=== PATIENT | female | born 1930 | race Caucasian/White ===

== ENCOUNTER 2019-06-16 08:51 | Inpatient (IN) ==
[2019-06-16 09:38] LABS: Basophils # (auto) 0.01 K/uL (0-0.2); Basophils % (auto) 0.2 %; Eosinophils # (auto) 0.18 K/uL (0-0.5); Eosinophils % (auto) 2.8 %; Hematocrit (blood only) 39.8 % (37-47); Hemoglobin 13.1 g/dL (12.0-16.0); Immature Granulocytes # (auto) 0.01 K/uL (0.00-0.02); Immature Granulocytes % (auto) 0.2 %; Lymphocytes # (auto) 2.15 K/uL (1.2-3.4); Lymphocytes % (auto) 33.1 %; Mean Corpuscular Hgb Conc 32.9 g/dL (32-36); Mean Corpuscular Volume 94.3 fL (80-100); Mean Platelet Volume 10.2 fL (7.4-10.4); Monocytes # (auto) 0.69 K/uL (0.11-0.59); Monocytes % (auto) 10.6 %; Neutrophils # (auto) 3.45 K/uL (1.4-6.5); Neutrophils % (auto) 53.1 %; Platelet Count 222 K/uL (130-400); RDW Coefficient of Variation 12.7 % (11.5-14.5); RDW Standard Deviation 43.1 fL (36.4-46.3); Red Blood Count 4.22 M/uL (4.2-5.4); White Blood Count 6.49 K/uL (4.8-10.8)
[2019-06-16 09:46] LABS: Prothrombin Time 10.7 Seconds (9.0-12.0)
--- NOTE | 2019-06-16 09:50 | XRay Report ---
XR pelvis 1-2V routine CLINICAL HISTORY: 88 years-old Female presenting with trauma. TECHNIQUE: Single frontal view of the pelvis was obtained. COMPARISON: None. FINDINGS: Osteopenia. This limits evaluation for nondisplaced fracture. Degenerative changes of the lower lumba r spine. Sacroiliac joints grossly congruent though poorly evaluated secondary to bowel gas. The sacr um is also partially obscured. Pubic symphysis and hip joints congruent. Severe degenerative changes of the left hip with joint space loss superiorly, subchondral sclerosis in both the femoral head and acetabulum as well as cortical surface depression and irregularity. No significant degenerative siegel es evident in the right hip. Femoral necks intact. Bony pelvis grossly intact. IMPRESSION: 1. Allowing for osteopenia and bowel gas, no gross evidence of acute osseous injury of the pelvis. 2. Severe deforming degenerative change of the left hip. ACT 112: Negative or not required by law. Electronically signed by: Turner Govea M.D. 06/16/2019 9:48 AM
--- NOTE | 2019-06-16 09:52 | XRay Report ---
XR chest 1V portable CLINICAL HISTORY: dizziness COMPARISON STUDY: Chest radiograph November 04, 2018. FINDINGS: Note is made of scoliosis of the thoracolumbar spine. Suspected left pleural calcified plaq ue is noted. There are old right rib fractures. Mild cardiomegaly is noted without evidence for pulmo nary edema. There is no consolidation to suggest pneumonia. Old right clavicular fracture is noted. IMPRESSION: No acute cardiopulmonary findings. ACT 112: Negative or not required by law. Electronically signed by: Jem Choudhury M.D. 06/16/2019 9:50 AM
[2019-06-16 09:54] LABS: Alanine Aminotransferase 22 U/L (12-78); Albumin Level 3.5 gm/dl (3.4-5.0); Aspartate Aminotransferase 21 U/L (15-37); BUN Creatinine Ratio 17.8 (10-20); Blood Urea Nitrogen 13 mg/dl (7-18); Calcium 9.8 mg/dl (8.5-10.1); Carbon Dioxide 28 mmol/L (21-32); Chloride 108 mmol/L (98-107); Creatinine Clr Calc Pharmacy 39.3 ml/min; Est GFR (African American) 88.1; Glucose 96 mg/dl (70-99); Lipase 68 U/L (73-393); Magnesium 1.8 mg/dl (1.8-2.4); Potassium 3.9 mmol/L (3.5-5.1); Sodium 141 mmol/L (136-145)
[2019-06-16 09:56] LABS: Appearance Urine Cloudy (Clear); Bacteria Urine Automated 1+ (Negative); Bilirubin Urine Negative (Negative); Blood Urine 2+ (Negative); Color Urine Yellow; Epithelial Cell Urine Auto 0-5 /lpf (0-5); Glucose Urine UA Negative (Negative); Ketones Urine Negative (Negative); Leukocyte Esterase Urine 2+ (Negative); Nitrite Urine Negative (Negative); Protein Urine 2+ (Negative); Specific Gravity Urine 1.018 (1.000-1.030); Urobilinogen Urine Negative (Negative); WBC Urine Automated >30 /hpf (0-5); pH Urine 5.5 (4.5-7.5)
--- NOTE | 2019-06-16 10:02 | CT Scan Report ---
CT OF THE HEAD WITHOUT CONTRAST CLINICAL HISTORY: trauma, dizziness COMPARISON STUDY: No previous studies for comparison. TECHNIQUE: Helical axial images of the head were obtained without IV contrast. Automated exposure con trol was utilized for the study. A dose lowering technique was utilized adhering to the principles o f ALARA. FINDINGS: Acute intracranial hemorrhage, midline shift or mass effect is present. Right frontal lobe encephalomalacia is noted. White matter hypodensity suggests small vessel disease. Mild ventricular d ilatation is likely due to central atrophy. Basilar cisterns are patent. There are no extra axial col lections. There is no calvarial fracture. IMPRESSION: 1. No acute intracranial findings. 2. No calvarial fracture. 3. Right frontal lobe encephalomalacia. ACT 112: Negative or not required by law. Electronically signed by: Jem Choudhury M.D. 06/16/2019 10:01 AM
[2019-06-16] MEDS: SODIUM CHLORIDE 0.9% 1000ML 1,000 ML IV SCH ×2 (10:04→16:33)
[2019-06-16 10:05] LABS: Albumin Globulin Ratio 1.1 (0.9-2); Alkaline Phosphatase 93 U/L (45-117); Bilirubin,Total 0.9 mg/dl (0.2-1); Globulin 3.3 gm/dl (2.5-4.0); Thyroid Stimulating Hormone 0.243 uIu/ml (0.300-4.500); Total Protein 6.8 gm/dl (6.4-8.2); Troponin I < 0.015 ng/ml (0-0.045)
--- NOTE | 2019-06-16 10:05 | CT Scan Report ---
CT cervical spine wo con CLINICAL HISTORY: 88 years-old Female presenting with trauma, dizziness. TECHNIQUE: Multidetector CT of the cervical spine was performed without the use of intravenous contra st. IV contrast: None. One or more dose lowering techniques were used consistent with the principles of ALARA (as low as reasonably achievable), including automatic exposure control, mA or kV adjustment to individual patient size, and/or use of iterative reconstruction. COMPARISON: None. CT DOSE (mGy.cm): The estimated cumulative dose is 925.33 mGy.cm. 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 Mild exaggerated cervical lordosis. Vertebral bodies maintain normal height and alignment. Moderate i ntervertebral disc height loss at C5-6 and to a lesser extent at C4-5. Disc osteophyte complexes at t hese levels with mild posterior spondylitic spurring. Evaluation of the soft tissues of the spinal ca nal do not demonstrate further effacement of the thecal sac. No significant facet arthropathy. Mild u ncovertebral hypertrophy at C4-5 and C5-6 results in osseous neural foraminal narrowing. Incidental n ote made of bilateral ponticulus posticus. Mild degenerative changes of the atlantodental articulatio n with loss of height of the basion height and dental interval. This is likely on a degenerative basi s. No acute fracture or subluxation. Visualized portion of the skull base intact. Paraspinal musculature normal. 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 Diminutive left thyr oid lobe. Atherosclerosis.. Lung apices clear. IMPRESSION: 1. No acute osseous injury of the cervical spine. 2. Focal degenerative change at C4-5 and C5-6. 3. Multinodular goiter. ACT 112: Negative or not required by law. Electronically signed by: Turner Govea M.D. 06/16/2019 10:04 AM
[2019-06-16 10:41] LABS: T4 Free Thyroxine 1.31 ng/dl (0.8-1.6)
[2019-06-16] MEDS ORDERED: cefTRIAXone SODIUM 1,000 MG/50 ML BAG IV STA (11:15)
--- NOTE | 2019-06-16 13:39 | Emergency Department Note ---
Entered by Leslie Regalado acting as a scribe for History of Present Illness General Chief complaint: Dizziness Time Seen by Provider: 06/16/19 08:57 Source: patient and family History of Present Illness Onset (ago): day(s) 2 Location: head (dizziness) Severity: similar to prior episodes Pain Consistency: + other (persistent) Quality: + other (dizziness, room spinning) Relieved By: + rest; not by medication (Tylenol) Exacerbated By: + movement (sitting up) Associated symptoms: + headaches and + other (Positive dizziness, room spinning, warm, anxious, UTI symptoms, fall. Negative abdominal pain.); no nausea/vomiting The patient is an 88 year old female presenting to the Emergency Department complaining of persistent dizziness starting 2 days ago. The patients family reports that the patient has been dizzy and has been trouble getting out of bed because of this dizziness. They describe this dizziness as a spinning sensation. They state that the patients dizziness has improved but that she still currently is experiencing it. They note that lying down and resting improve the patients dizziness. They add that the patient was warm yesterday but that her temperature was never taken and that her blood pressure yesterday was 168/90s. The patients family reports that the patient fell 3 days ago. They state that the patient hit her head off of a skin and scraped her extremities. They explain that the patient was complaining of a headache 1 day ago but that her headache h as resolved since. They note that the patient has been taking Tylenol that hasnt improved her symptoms. They add that the patient is anxious. The patients family reports that the patient is supposed to have a hip replacement this week. She states that she hasnt contacted the patients orthopedic surgeon about her recent fall. They note that the patient has UTI symptoms. They add that the patient has fallen before. The patient denies nausea, vomiting, abdominal pain and use of blood thinners. Home Medications Home Medications Medication Instructions Recorded Confirmed Type meloxicam 7.5 mg PO DAILY 11/04/18 06/16/19 History turmeric 400 mg PO DAILY 11/04/18 06/16/19 History atenolol 50 mg PO HS 05/09/19 06/16/19 History hydrocodone 5 mg-acetaminophen 325 1 tab PO Q8H PRN #30 tab 02/03/20 03/05/20 Rx mg tablet meclizine 25 mg tablet 25 mg PO DAILY PRN 05/16/19 06/16/19 History tramadol 50 mg tablet 50 mg PO BID PRN 06/06/19 06/16/19 History mirtazapine 15 mg tablet 15 mg PO DAILY #30 tab 06/07/19 06/16/19 Rx lorazepam 0.5 mg tablet 0.5 mg PO BID PRN #30 tab 06/13/19 06/16/19 Rx Allergies Allergy/AdvReac Type Severity Reaction Status Date / Time No Known Allergies Allergy Unverified 06/16/19 09:41 Past Med/Surg History Medical History 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 Degenerative disc disease Depression situational ( 06/2018) Dizziness + hx vertigo/dizziness- PCP monitoring History of high blood pressure History of vertigo Nausea Scoliosis deformity of spine Surgical History History of bilateral cataract extraction History of hysterectomy Family History Mother Family history of stroke Father Family history of stroke Other Family history of prostate cancer in father Denies family history of Ovarian cancer Prostate cancer Myocardial infarction Breast cancer Colorectal cancer Social History Preferred Language: Cymro Communication Ability: Effective Visual Impairment: No Limitations Hearing Ability: Normal 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 and A total of 10 systems reviewed and were otherwise negative Physical Exam Vital Signs Vital Signs - 24 hr 06/16/19 09:06 06/16/19 09:14 06/16/19 10:03 Temperature 37.5 C Temperature Source Oral Pulse Rate - Lying 65 Pulse Rate - Sitting 68 Pulse Rate - Standing 74 Pulse Rate 65 Pulse Rate [Left Finger] 64 Respiratory Rate 16 22 Blood Pressure - Lying 169/80 H Blood Pressure - Sitting 190/111 H Blood Pressure- Standing 173/94 H Blood Pressure 183/82 H Blood Pressure [Right Arm] 163/73 H Blood Pressure Mean 115 Blood Pressure Mean [Right Arm] 103 Pulse Oximetry 96 97 Oxygen Delivery Method Room Air Room Air Sepsis Recent Fever Within 48 Hours No Sepsis New/Unexplained Change in Mental Status No Sepsis Action Taken by Nursing No Action Required 06/16/19 11:00 06/16/19 12:00 06/16/19 13:03 Temperature Temperature Source Pulse Rate - Lying Pulse Rate - Sitting Pulse Rate - Standing Pulse Rate Pulse Rate [Left Finger] 61 64 69 Respiratory Rate 18 18 20 Blood Pressure - Lying Blood Pressure - Sitting Blood Pressure- Standing Blood Pressure Blood Pressure [Right Arm] 161/88 H 166/86 H 156/72 H Blood Pressure Mean Blood Pressure Mean [Right Arm] 112 112 100 Pulse Oximetry 97 97 97 Oxygen Delivery Method Room Air Room Air Room Air Sepsis Recent Fever Within 48 Hours Sepsis New/Unexplained Change in Mental Status Sepsis Action Taken by Nursing GENERAL: alert, well appearing, well nourished, no distress, non-toxic HEAD: normal cephalic, atraumatic, no schultz sign, no raccoon eyes EYE EXAM: normal conjunctiva, PERRL and EOM's grossly intact OROPHARYNX: no exudate, no erythema, lips, buccal mucosa, and tongue normal and mucous membranes are moist EARS: TMs clear b/l without hemotympanum, no edema along the canals NECK: supple, no nuchal rigidity, no adenopathy, non-tender CHEST: stable to compression anteriorly and posteriorly LUNGS: clear to auscultation. Normal chest wall mechanics, no w/r/r HEART: no murmurs, S1 normal and S2 normal ABDOMEN: abdomen soft, non-tender, normo-active bowel sounds, no masses, no rebound or guarding. PELVIS: stable to compression anteriorly and posteriorly BACK: Back is symmetrical on inspection and there is no deformity, no midline tenderness, no CVA tenderness. UPPER EXTREMITIES: Superficial abrasion/skin tear to the right forearm. Full active and passive range of motion of all joints without tenderness to palpation LOWER EXTREMITIES: Superficial abrasion/skin tear to distal LLE. Full active and passive range of motion of all joints without tenderness to palpation NEURO EXAM: Normal sensorium, cranial nerves II-XII grossly intact, normal speech, no gross weakness of arms, no gross weakness of legs. GCS: 15. Course Course 09: The patient was evaluated in room B12B, and a complete history and physical examination were performed. 1050: I reevaluated the patient at this time. 1058: I spoke to Dr. Hubbard orthoptists OR nurse. She recommended to try and call Dr. Horn orthopedists office. 1114: I discussed the patients case with Dr. Shepherd nurse Tammie. She will discuss the patients with him to determine the patients operative procedure which is scheduled for tomorrow. 1236: I discussed the patients case with Dr. Horn orthopedist. He is at the patients bedside and will evaluate her at this time. 1246: I spoke with Dr. Horn at this time. He recommends to have the patient medically admitted. 1335: I discussed the patient's case with Dr. Beard [facility] hospitalist. She will evaluate the patient for further management. Administered Medications Atenolol (Tenormin) 50 mg PO HS JACK Stop: 07/16/19 20:59 Last Admin: 06/16/19 20:19 Dose: 50 mg Documented by: [id number] Heparin Sodium (Porcine) (Heparin Sodium (Porcine)) 5,000 units SQ Q12 JACK Stop: 07/16/19 20:59 Last Admin: 06/17/19 08:08 Dose: Not Given Documented by: [id number] Admin: 06/16/19 20:19 Dose: 5,000 units Documented by: [id number] Cosigned by: [id number] Ceftriaxone Sodium 2,000 mg/ (Dextrose) 70 mls @ 100 mls/hr IV Q24H JACK; Protocol Stop: 06/22/19 10:59 Last Infusion: 06/17/19 12:12 Dose: 0 mls/hr Documented by: [id number] Admin: 06/17/19 11:16 Dose: 100 mls/hr Documented by: [id number] Lorazepam (Ativan) 0.5 mg PO BID PRN PRN Reason: anxiety Stop: 07/16/19 16:29 Last Admin: 06/17/19 11:18 Dose: 0.5 mg Documented by: [id number] Meloxicam (Mobic) 7.5 mg PO DAILY [facility] Stop: 07/17/19 08:59 Last Admin: 06/17/19 08:08 Dose: Not Given Documented by: [id number] Mirtazapine (Remeron) 15 mg PO DAILY [facility] Stop: 07/17/19 08:59 Last Admin: 06/17/19 08:08 Dose: Not Given Documented by: [id number] Discontinued Medications Sodium Chloride (Nss 1000ml) 1,000 mls @ 250 mls/hr IV .Q4H JACK Stop: 07/16/19 09:29 Last Admin: 06/16/19 16:33 Dose: Not Given Documented by: [id number] Infusion: 06/16/19 15:08 Dose: 0 mls/hr Documented by: [id number] Admin: 06/16/19 10:04 Dose: 250 mls/hr Documented by: [id number] Ceftriaxone Sodium (Rocephin) 1,000 mg in 50 mls @ 100 mls/hr IV NOW [facility] Stop: 06/16/19 11:44 Last Infusion: 06/16/19 11:55 Dose: 0 mls/hr Documented by: [id number] Admin: 06/16/19 11:24 Dose: 100 mls/hr Documented by: [id number] Medical Decision Making Differential Diagnosis Differential diagnosis includes etiologies such as benign positional vertigo, dehydration, hypovolemia, anemia, tumor, infection, hypoglycemia, electrolyte abnormalities, cardiac sources, intracerebral event, toxicologic, neurologic, as well as others were entertained. Medical Records Attestation: I reviewed the patient's medical records. Home Medications Current Medication List: was personally reviewed by me Laboratory Data Attestation: I reviewed the patient's lab results. Result diagrams: 06/17/19 06:17 06/17/19 06:17 Lab Results 06/16/19 06/16/19 06/16/19 Range/Units 09:25 09:28 09:28 WBC 6.49 (4.8-10.8) K/uL RBC 4.22 (4.2-5.4) M/uL Hgb 13.1 (12.0-16.0) g/dL Hct 39.8 (37-47) % MCV 94.3 (80-100) fL MCH 31.0 (25-34) pg MCHC 32.9 (32-36) g/dL RDW Std Deviation 43.1 (36.4-46.3) fL RDW Coeff of Amarjit 12.7 (11.5-14.5) % Plt Count 222 (130-400) K/uL MPV 10.2 (7.4-10.4) fL Immature Gran % (Auto) 0.2 % Neut % (Auto) 53.1 % Lymph % (Auto) 33.1 % [place] % (Auto) 10.6 % Eos % (Auto) 2.8 % Baso % (Auto) 0.2 % Immature Gran # (Auto) 0.01 (0.00-0.02) K/uL Neut # (Auto) 3.45 (1.4-6.5) K/uL Lymph # (Auto) 2.15 (1.2-3.4) K/uL [place] # (Auto) 0.69 H (0.11-0.59) K/uL Eos # (Auto) 0.18 (0-0.5) K/uL Baso # (Auto) 0.01 (0-0.2) K/uL PT 10.7 (9.0-12.0) Seconds INR 1.0 (0.9-1.1) Sodium (136-145) mmol/L Potassium (3.5-5.1) mmol/L Chloride (98-107) mmol/L Carbon Dioxide (21-32) mmol/L Anion Gap (3-11) BUN (7-18) mg/dl Creatinine (0.6-1.2) mg/dl Est Cr Clr Drug Dosing ml/min Est GFR ( Amer) Est GFR (Non-Af Amer) BUN/Creatinine Ratio (10-20) Glucose (70-99) mg/dl Calcium (8.5-10.1) mg/dl Magnesium (1.8-2.4) mg/dl Total Bilirubin (0.2-1) mg/dl AST (15-37) U/L ALT (12-78) U/L Alkaline Phosphatase (45-117) U/L Troponin I (0-0.045) ng/ml Total Protein (6.4-8.2) gm/dl Albumin (3.4-5.0) gm/dl Globulin (2.5-4.0) gm/dl Albumin/Globulin Ratio (0.9-2) Lipase (73-393) U/L TSH (0.300-4.500) uIu/ml Free T4 (0.8-1.6) ng/dl Urine Color Yellow Urine Appearance Cloudy A (Clear) Urine pH 5.5 (4.5-7.5) Ur Specific [place] 1.018 (1.000-1.030) Urine Protein 2+ H (Negative) Urine Glucose (UA) Negative (Negative) Urine Ketones Negative (Negative) Urine Blood 2+ H (Negative) Urine Nitrite Negative (Negative) Urine Bilirubin Negative (Negative) Urine Urobilinogen Negative (Negative) Ur Leukocyte Esterase 2+ H (Negative) Urine WBC (Auto) >30 H (0-5) /hpf Urine RBC (Auto) 10-30 H (0-4) /hpf U Hyaline Cast (Auto) 1-5 (0-5) /lpf U Epithel Cells (Auto) 0-5 (0-5) /lpf Urine Bacteria (Auto) 1+ H (Negative) 06/16/19 Range/Units 09:28 WBC (4.8-10.8) K/uL RBC (4.2-5.4) M/uL Hgb (12.0-16.0) g/dL Hct (37-47) % MCV (80-100) fL MCH (25-34) pg MCHC (32-36) g/dL RDW Std Deviation (36.4-46.3) fL RDW Coeff of Amarjit (11.5-14.5) % Plt Count (130-400) K/uL MPV (7.4-10.4) fL Immature Gran % (Auto) % Neut % (Auto) % Lymph % (Auto) % [place] % (Auto) % Eos % (Auto) % Baso % (Auto) % Immature Gran # (Auto) (0.00-0.02) K/uL Neut # (Auto) (1.4-6.5) K/uL Lymph # (Auto) (1.2-3.4) K/uL [place] # (Auto) (0.11-0.59) K/uL Eos # (Auto) (0-0.5) K/uL Baso # (Auto) (0-0.2) K/uL PT (9.0-12.0) Seconds INR (0.9-1.1) Sodium 141 (136-145) mmol/L Potassium 3.9 (3.5-5.1) mmol/L Chloride 108 H (98-107) mmol/L Carbon Dioxide 28 (21-32) mmol/L Anion Gap 5.0 (3-11) BUN 13 (7-18) mg/dl Creatinine 0.71 (0.6-1.2) mg/dl Est Cr Clr Drug Dosing 39.3 ml/min Est GFR ( Amer) 88.1 Est GFR (Non-Af Amer) 76.0 BUN/Creatinine Ratio 17.8 (10-20) Glucose 96 (70-99) mg/dl Calcium 9.8 (8.5-10.1) mg/dl Magnesium 1.8 (1.8-2.4) mg/dl Total Bilirubin 0.9 (0.2-1) mg/dl AST 21 (15-37) U/L ALT 22 (12-78) U/L Alkaline Phosphatase 93 (45-117) U/L Troponin I < 0.015 (0-0.045) ng/ml Total Protein 6.8 (6.4-8.2) gm/dl Albumin 3.5 (3.4-5.0) gm/dl Globulin 3.3 (2.5-4.0) gm/dl Albumin/Globulin Ratio 1.1 (0.9-2) Lipase 68 L (73-393) U/L TSH 0.243 L (0.300-4.500) uIu/ml Free T4 1.31 (0.8-1.6) ng/dl Urine Color Urine Appearance (Clear) Urine pH (4.5-7.5) Ur Specific [place] (1.000-1.030) Urine Protein (Negative) Urine Glucose (UA) (Negative) Urine Ketones (Negative) Urine Blood (Negative) Urine Nitrite (Negative) Urine Bilirubin (Negative) Urine Urobilinogen (Negative) Ur Leukocyte Esterase (Negative) Urine WBC (Auto) (0-5) /hpf Urine RBC (Auto) (0-4) /hpf U Hyaline Cast (Auto) (0-5) /lpf U Epithel Cells (Auto) (0-5) /lpf Urine Bacteria (Auto) (Negative) Imaging Data Radiologist's Impression: Radiology results as stated below per my review and the radiologist's interpretation: ADDENDUM Addendum: The first sentence of the findings section should read: No acute intracranial hemorrhage, midline shift or mass effect is present. Results electronically sent 06/16/2019 10:50 AM to: Fanta Howard DO Electronically signed by: Jem Choudhury M.D. 06/16/2019 10:[address] OF THE HEAD WITHOUT CONTRAST CLINICAL HISTORY: trauma, dizziness COMPARISON STUDY: No previous studies for comparison. TECHNIQUE: Helical axial images of the head were obtained without IV contrast. Automated exposure control was utilized for the study. A dose lowering technique was utilized adhering to the principles of ALARA. FINDINGS: Acute intracranial hemorrhage, midline shift or mass effect is present. Right frontal lobe encephalomalacia is noted. White matter hypodensity suggests small vessel disease. Mild ventricular dilatation is likely due to central atrophy. Basilar cisterns are patent. There are no extra axial collections. There is no calvarial fracture. IMPRESSION: 1. No acute intracranial findings. 2. No calvarial fracture. 3. Right frontal lobe encephalomalacia. ACT 112: Negative or not required by law. Electronically signed by: Jem Choudhury M.D. 06/16/2019 10:[address] cervical spine wo con CLINICAL HISTORY: 88 years-old Female presenting with trauma, dizziness. TECHNIQUE: Multidetector CT of the cervical spine was performed without the use of intravenous contrast. IV contrast: None. One or more dose lowering techniques were used consistent with the principles of ALARA (as low as reasonably achievable), including automatic exposure control, mA or kV adjustment to individual patient size, and/or use of iterative reconstruction. COMPARISON: None. CT DOSE (mGy.cm): The estimated cumulative dose is 925.33 mGy.cm. FINDINGS: Kitchen Chef topogram: Unremarkable. Mild exaggerated cervical lordosis. Vertebral bodies maintain normal height and alignment. Moderate intervertebral disc height loss at C5-6 and to a lesser extent at C4-5. Disc osteophyte complexes at these levels with mild posterior spondylitic spurring. Evaluation of the soft tissues of the spinal canal do not demonstrate further effacement of the thecal sac. No significant facet arthropathy. Mild uncovertebral hypertrophy at C4-5 and C5-6 results in osseous neural foraminal narrowing. Incidental note made of bilateral ponticulus posticus. Mild degenerative changes of the atlantodental articulation with loss of height of the basion height and dental interval. This is likely on a degenerative basis. No acute fracture or subluxation. Visualized portion of the skull base intact. Paraspinal musculature normal. 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 Diminutive left thyroid lobe. Atherosclerosis.. Lung apices clear. IMPRESSION: 1. No acute osseous injury of the cervical spine. 2. Focal degenerative change at C4-5 and C5-6. 3. Multinodular goiter. ACT 112: Negative or not required by law. Electronically signed by: Turner Govea M.D. 06/16/2019 10:04 AM XR chest 1V portable CLINICAL HISTORY: dizziness COMPARISON STUDY: Chest radiograph November 04, 2018. FINDINGS: Note is made of scoliosis of the thoracolumbar spine. Suspected left pleural calcified plaque is noted. There are old right rib fractures. Mild cardiomegaly is noted without evidence for pulmonary edema. There is no consolidation to suggest pneumonia. Old right clavicular fracture is noted. IMPRESSION: No acute cardiopulmonary findings. ACT 112: Negative or not required by law. Electronically signed by: Jem Choudhury M.D. 06/16/2019 9:50 AM XR pelvis 1-2V routine CLINICAL HISTORY: 88 years-old Female presenting with trauma. TECHNIQUE: Single frontal view of the pelvis was obtained. COMPARISON: None. FINDINGS: Osteopenia. This limits evaluation for nondisplaced fracture. Degenerative changes of the lower lumbar spine. Sacroiliac joints grossly congruent though poorly evaluated secondary to bowel gas. The sacrum is also partially obscured. Pubic symphysis and hip joints congruent. Severe degenerative changes of the left hip with joint space loss superiorly, subchondral sclerosis in both the femoral head and acetabulum as well as cortical surface depression and irregularity. No significant degenerative changes evident in the right hip. Femoral necks intact. Bony pelvis grossly intact. IMPRESSION: 1. Allowing for osteopenia and bowel gas, no gross evidence of acute osseous injury of the pelvis. 2. Severe deforming degenerative change of the left hip. ACT 112: Negative or not required by law. Electronically signed by: Turner Govea M.D. 06/16/2019 9:48 AM ECG Data Attestation: I personally reviewed and interpreted this ECG as follows: Indication: + other (dizziness) Rate (beats per minute): 64 Rhythm: + sinus rhythm ECG Intervals/blocks: + Normal QRS, + Normal QT and + Normal QT-c ECG [place]: + Normal ECG Findings: + Other (No acute ischemia.); no PACs and no PVCs Blood Pressure Blood Pressure Findings: Elevated blood pressure Blood Pressure Disposition: further management by hospitalist MDM Narrative Cardiac Monitoring: An order was placed for continuous cardiac monitoring. The monitor shows a rate of 82 with normal sinus rhythm. Patient here due to weakness, dizziness, getting worse per the family report to up to care for her. Patient did have a recent fall and due to concern for dizziness, family thought perhaps patient could have occult injury versus a urinary tract infection which is also because the symptoms prior. Patient found to have a UTI and was started on antibiotics. Patient's other labs and imaging are reassuring. Patient was scheduled to have a hip replacement tomorrow by Dr. Horn. We attempted to contact initially orthopedics corrections cadet and then Dr. Horn directly to see if this was still possible. Upon additional discussion with the family I involved case management as they were uncomfortable sending the patient home we did not feel we had a safe discharge plan as patient cannot safely ambulate at this time even with an assistive device. After discussion with Dr. Horn who also came and evaluated the patient at bedside, decision made to keep the patient in hospital for antibiotics, IV hydration, and continued monitoring in the hopes that she would still be able to have her surgery performed as scheduled, if not Dr. Horn will reschedule the procedure. Patient and family aware of all results and were in agreement with plan. Impression & Plan Dizziness, Left hip pain, Acute UTI, Dehydration, Fall Discharge Plan Visit Data *Final* Discharge Date/Time: 06/16/19 15:48 Chief Complaint: Dizziness ED Provider: Fanta Howard Discharge Problem: Dizziness, Left hip pain, Acute UTI, Dehydration, Fall Patient Disposition: Admitted As Inpatient Condition: Good Discharge Instructions Interventions: ED Discharge Assessment Last Done: 06/16/19 15:48 Discharge Problem: Fall Qualifiers: Encounter type: initial encounter Qualified Code(s): W19.XXXA - Unspecified fall, initial encounter The scribe's documentation has been prepared under my direction and personally reviewed by me in its entirety. I confirm that the note above accurately reflects all work, treatment, procedures, and medical decision making performed by me.
--- NOTE | 2019-06-16 15:12 | History & Physical Report ---
Date of Service June 16, 2019 Assessment & Plan (1) Acute UTI: Admit to [facility] on telemetry, Vital signs every 4 hours, Continue monitoring CBC CMP and replenish electrolytes, Patient was started empirically on ceftriaxone for urinary tract infection, DVT prophylaxis Heparin 5000 subcu every 12 hours Full code Present on Admission?: Yes (2) Dehydration: Patient was resuscitated in the emergency room with IV fluid, Continue monitoring BUN. Present on Admission?: Yes (3) Dizziness: Most likely due to dehydration and urinary tract infection, Slowly improving Present on Admission?: Yes (4) Osteoarthritis of left hip: Dr. Horn is planning for patient to have surgery of left hip replacement on patient tomorrow at 1 PM if patient feels better. In case the surgery is going to be done we will continue on n.p.o. after midnight. Please inform Dr. Horn about patient status tomorrow and whether or not surgery should take place tomorrow or on Thursday. Continue pain management with hydrocodone/acetaminophen 5/325 milligrams every 8 hours as needed. Continue lorazepam 0.5 mg p.o. twice daily as needed. Continue meloxicam 7.5 mg p.o. daily, Continue tramadol 50 mg p.o. twice daily as needed. Present on Admission?: Yes (5) Fall: Hip surgery will definitely help patient to walk better and have better balance. Physical and Occupational Therapy should be planned after surgery. Present on Admission?: Yes (6) HTN (hypertension): An average is stable. Continue home medicine atenolol 50 mg p.o. nightly. Present on Admission?: Yes (7) Benign positional vertigo: Continue meclizine 25 mg p.o. daily as needed for vertigo Present on Admission?: Yes (8) Failure to thrive: Continue mirtazapine 15 mg p.o. daily. Present on Admission?: Yes History of Present Illness Chief Complaint: Primary Care Provider: Rashad Devries, The patient is an 88 years old female with past medical history of hy pertension, left hip pain, vertigo, who was brought by EMS complaining of persistent dizziness started 2 days ago. The patient family reports that patient has been dizzy and has trouble getting out of bed because of her dizziness. Patient is poor historian and family is mostly reviewing systems and giving history for her. Dizziness is described as a spinning sensation. Even though patient reports the dizziness is somewhat improved she still has it. Resting and lying down improves dizziness. The family reports that patient fell 3 days ago. She hit her head and scraped her extremities. Since that fall patient is complaining of a headache for 1 day but that headache resolved. Thing improves patient body pain, and her family said that occasionally she takes Tylenol. Patient also has issues with anxiety. Patient supposed to have left hip replacement tomorrow with Dr. Horn. Patient denies fever, chills, chest pain, shortness of breath, abdominal pain, frequency, urgency. Patient is not on blood thinning agents. Denies traveling recently abroad. Labs are reviewed: WBC 6.49, hemoglobin 13.1, hematocrit 39.8, platelets 222, PT 10.7, INR 1, sodium 141, potassium 3.9, chloride 108, carbon dioxide 28, anion gap 5, BUN 13, creatinine 0.0 71, GFR 76, BUN 17.8, glucose 96, calcium 9.8, magnesium 1.8, total bilirubin 0.9, AST 21, ALT 22, alkaline phosphatase 93, troponin 0.01 5, total protein 6.8, albumin 3.5, globulin 3.3, lipase 68, TSH 0.243 which is low but T4 is still normal 1.31. Urine is yellow, urine appearance cloudy, urine pH 5.5, urine specific gravity 1.018 urine protein 2+, urine blood 2+, urine nitrate negative, leukocyte esterase 2+, urine WBCs over 30, urine RBCs 10-30, urine bacteria 1+. X-rays of the cervical spine: No acute osseous injury of the cervical spine. Focal degenerative changes of C4-C5 and C5-C6. Multinodular gland goiter. Chest x-rays no acute cardiopulmonary finding. Mild cardiomegaly is noted without evidence of pulmonary edema. There is no consolidation of suggested pneumonia. Old right clavicular fracture is noted. CT scan of the head did not show acute intracranial findings. Patient set has mild ventricular dilatation likely due to central atrophy. Basilar cisterns are patent. Right frontal lobe encephalomalacia. X-rays of pelvis shows osteopenia and bowel gas no gross evidence of acute osseous injury of the pelvis. Severe deforming degenerative changes of the left hip. The decision was made to admit patient to MedSurg on telemetry for further evaluation and treatment of generalized weakness, dizziness and treatment of urinary tract infection. Allergies Allergy/AdvReac Type Severity Reaction Status Date / Time No Known Allergies Allergy Unverified 06/16/19 09:41 Home Medications Home Medications Medication Instructions Recorded Confirmed Type meloxicam 7.5 mg PO DAILY 11/04/18 06/16/19 History turmeric 400 mg PO DAILY 11/04/18 06/16/19 History atenolol 50 mg PO HS 05/09/19 06/16/19 History hydrocodone 5 mg-acetaminophen 325 1 tab PO Q8H PRN #30 tab 05/16/19 06/16/19 Rx mg tablet meclizine 25 mg tablet 25 mg PO DAILY PRN 05/16/19 06/16/19 History tramadol 50 mg tablet 50 mg PO BID PRN 06/06/19 06/16/19 History mirtazapine 15 mg tablet 15 mg PO DAILY #30 tab 06/07/19 06/16/19 Rx lorazepam 0.5 mg tablet 0.5 mg PO BID PRN #30 tab 06/13/19 06/16/19 Rx Past Med/Surg History Medical History 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 Degenerative disc disease Depression situational ( 06/2018) Dizziness + hx vertigo/dizziness- PCP monitoring History of high blood pressure History of vertigo Nausea Scoliosis deformity of spine Surgical History History of bilateral cataract extraction History of hysterectomy Family History Mother Family history of stroke Father Family history of stroke Other Family history of prostate cancer in father Denies family history of Ovarian cancer Prostate cancer Myocardial infarction Breast cancer Colorectal cancer Social History Preferred Language: Armenian Communication Ability: Impaired Visual Impairment: No Limitations Hearing Ability: Normal [place] Measurer Required: No Beliefs That Will Affect Care: None marital status: / Current Living Situation: Family Current Living Situation Comment: Lives with son and daughter in law current occupational status: retired Feels Safe at Home: Yes Safety Concerns: Feels Safe At This Time Smoking Status: Never smoker Hx Alcohol Use: No Hx Substance Use: No Childhood Exposure to Second-Hand Smoke: Yes Dental Care, Regularly: Yes Physical Activity Frequency: Does not Exercise Seatbelt Use: always Sunscreen Use: Yes Review of Systems Review of Systems: All systems reviewed & are unremarkable except as noted in HPI & below Physical Exam Constitutional: WD/WN, vitals as above well developed, + ill appearing and + thin Eyes: PERRL ENMT: external ear and nose normal, oropharynx normal Neck: trachea midline, no thyromegaly Respiratory: normal respiratory effort, lungs clear to auscultation Cardiovascular: RRR, no murmur, no edema Vessels: dorsalis pedis pulses present Gastrointestinal (Abdomen): normal bowel sounds, soft, nontender, no hepatosplenomegaly Musculoskeletal: Spine: + buttock tenderness Limited range of motion in the left hip due to severe osteoarthritis Skin: no rashes, warm and dry Neurologic: patellar DTR's 2+ bilat, sensation intact Psychiatric: Insight: + limited insight 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 Lymphatic: no cervical or axillary lymphadenopathy Results & Data Vital Signs (Past 12 Hours) Vital Signs Temp Pulse Pulse Resp BP BP Pulse Ox 06/16/19 14:00 66 20 138/79 96 06/16/19 13:03 69 20 156/72 H 97 06/16/19 12:00 64 18 166/86 H 97 06/16/19 11:00 61 18 161/88 H 97 06/16/19 10:03 64 22 163/73 H 97 06/16/19 09:06 37.5 C 65 16 183/82 H 96 Code Status & VTE Plan Code Status Full code VTE Prophylaxis Plan VTE Prophylaxis will be ordered: Yes PG Care Time/CCT Total # of Minutes Spent Total Time Spent with Patient: Total time spent is greater than 50% in coordination of care (as documented) at patient's floor/unit and/or counseling patient: Coding Level of Care Code 27070 Initial Inpt Care Lvl 3 Diagnoses Acute UTI N39.0 Dehydration E86.0 Dizziness R42 Osteoarthritis of left hip M16.12 Fall W19.XXXA Encounter type: initial encounter HTN (hypertension) I10 Benign positional vertigo H81.10 Failure to thrive (1) Fall Encounter type: initial encounter Qualified Code(s): W19.XXXA - Unspecified fall, initial encounter
[2019-06-16] MEDS ORDERED: MAGNESIUM HYDROXIDE SUSP 30 ML UDC PO PRN (16:30)
[2019-06-16] MEDS ORDERED: ALUMINUM/MAGNESIUM SUSP 30 ML UDC PO PRN (16:30)
[2019-06-16] MEDS ORDERED: ONDANSETRON INJ 2 MG/ML 2 ML VIAL IV PRN (16:30)
[2019-06-16] MEDS ORDERED: ACETAMINOPHEN 325 MG TAB PO PRN (16:30)
[2019-06-16] MEDS ORDERED: POLYETHYLENE (MIRALAX) 17 GM PACK PO PRN (16:30)
[2019-06-16] MEDS ORDERED: TRAMADOL HCL 50 MG TABLET PO PRN (16:30)
--- NOTE | 2019-06-16 17:19 | Orthopedic Consultation ---
Date of Consultation June 16, 2019 Assessment & Plan (1) Osteoarthritis of left hip: She is being admitted to the hospitalist service for ambulatory dysfunction and possible UTI. The family can take care of her at home. If her UTI is asymptomatic, then we can proceed with the hip replacement tomorrow. Her and her family understand the risks given her medical condition as well as her age, however, she cannot ambulate with her hip the way it is. If the hospitalist feels that a couple days of treatment would optimize her medical status then I would be happy to replace the hip on Thursday. Also, if she is medically unstable then we can hold off any hip replacement for now. We will se e how she is doing tomorrow. She will be n.p.o. past midnight tonight. I put her on for my last case which will start around 1:00 tomorrow. Present on Admission?: Yes History of Present Illness Reason for Consultation: Osteoarthritis of left hip Attending Physician: Devonte Beard MD History of Present Illness Paula is a pleasant 88-year-old female who has advanced osteoarthritis of her left hip. Her left hip has completely collapsed and she is almost nonambulatory because of it. We have had long discussions in our office regarding her age and the risk of her procedure however, her and her family feel that she has very low quality of life because of her left hip pain. We elected to proceed with a left total hip arthroplasty tomorrow. Unfortunately she was feeling dizzy today. There was concerns that the family can no longer take care of her so they came to the emergency room. A full work-up was done which was essentially negative except for a possible UTI. She denies any burning urination or urinary symptoms. Her and her family say that she has had multiple UTIs in the past. They are generally asymptomatic. She is also been having difficulty ambulating. They do not feel that they can take her home. She was admitted to the medical service. And orthopedics was consulted for the impending total hip arthroplasty tomorrow. Allergies Allergy/AdvReac Type Severity Reaction Status Date / Time No Known Allergies Allergy Unverified 06/16/19 09:41 Home Medications Home Medications Medication Instructions Recorded Confirmed Type meloxicam 7.5 mg PO DAILY 11/04/18 06/16/19 History turmeric 400 mg PO DAILY 11/04/18 06/16/19 History atenolol 50 mg PO HS 05/09/19 06/16/19 History hydrocodone 5 mg-acetaminophen 325 1 tab PO Q8H PRN #30 tab 05/16/19 06/16/19 Rx mg tablet meclizine 25 mg tablet 25 mg PO DAILY PRN 05/16/19 06/16/19 History tramadol 50 mg tablet 50 mg PO BID PRN 06/06/19 06/16/19 History mirtazapine 15 mg tablet 15 mg PO DAILY #30 tab 06/07/19 06/16/19 Rx lorazepam 0.5 mg tablet 0.5 mg PO BID PRN #30 tab 06/13/19 06/16/19 Rx Patient History Medical History 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 Degenerative disc disease Depression situational ( 06/2018) Dizziness + hx vertigo/dizziness- PCP monitoring History of high blood pressure History of vertigo Nausea Scoliosis deformity of spine Surgical History History of bilateral cataract extraction History of hysterectomy Family History Mother Family history of stroke Father Family history of stroke Other Family history of prostate cancer in father Denies family history of Ovarian cancer Prostate cancer Myocardial infarction Breast cancer Colorectal cancer Social History Preferred Language: Chilean Communication Ability: Impaired Visual Impairment: No Limitations Hearing Ability: Normal Subcontract Manager Required: No Beliefs That Will Affect Care: None marital status: / Current Living Situation: Family Current Living Situation Comment: Lives with son and daughter in law current occupational status: retired Feels Safe at Home: Yes Safety Concerns: Feels Safe At This Time Smoking Status: Never smoker Hx Alcohol Use: No Hx Substance Use: No Childhood Exposure to Second-Hand Smoke: Yes Dental Care, Regularly: Yes Physical Activity Frequency: Does not Exercise Seatbelt Use: always Sunscreen Use: Yes Review of Systems Review of Systems: All systems reviewed & are unremarkable except as noted in HPI & below Physical Exam Musculoskeletal: On physical examination of the left hip, her left leg is about an inch shorter than her right. She has severe pain with range of motion of her left hip. All of her pain is located within her groin. She is otherwise neurovascularly intact. Results & Data ([facility]) Vital Signs (Past 12 Hours) Vital Signs Temp Pulse Pulse Resp BP BP Pulse Ox 06/16/19 16:37 37.0 C 98 H 18 185/90 H 98 06/16/19 16:13 67 06/16/19 14:00 66 20 138/79 96 06/16/19 13:03 69 20 156/72 H 97 06/16/19 12:00 64 18 166/86 H 97 06/16/19 11:00 61 18 161/88 H 97 06/16/19 10:03 64 22 163/73 H 97 06/16/19 09:06 37.5 C 65 16 183/82 H 96 PG Care Time/CCT Total # of Minutes Spent Total Time Spent with Patient: Total time spent is greater than 50% in co ordination of care (as documented) at patient's floor/unit and/or counseling patient: Coding Level of Care Code 27214 Inpt Consult Level 4 Diagnoses Osteoarthritis of left hip M16.12
[2019-06-16] MEDS ORDERED: HYDROCODONE/ACETAMOPHEN 5/325MG TAB PO PRN (17:24)
[2019-06-16] MEDS ORDERED: MECLIZINE HCL 25 MG TAB PO PRN (17:29)
--- NOTE | 2019-06-16 18:09 | Electrocardiogram Report ---
Test Reason : Blood Pressure : / mmHG Vent. Rate : 064 BPM Atrial Rate : 064 BPM P-R Int : 188 ms QRS Dur : 074 ms QT Int : 394 ms P-R-T Axes : 071 058 042 degrees QTc Int : 406 ms Normal sinus rhythm Normal ECG When compared with ECG of 16-MAY-2019 10:08, Premature ventricular complexes are no longer Present Confirmed by Kei Paz ([id number]) on 06/16/2019 6:08:45 PM Referred By: Confirmed By:Kei Paz
[2019-06-16] MEDS: HEPARIN SOD 5,000 UNIT/0.5 ML VIAL SQ SCH (20:19)
[2019-06-16] MEDS ORDERED: ATENOLOL 50 MG TABLET PO SCH (21:00)
[2019-06-17 06:46] LABS: Basophils # (auto) 0.01 K/uL (0-0.2); Basophils % (auto) 0.2 %; Eosinophils % (auto) 3.6 %; Hematocrit (blood only) 37.5 % (37-47); Hemoglobin 12.3 g/dL (12.0-16.0); Immature Granulocytes # (auto) 0.01 K/uL (0.00-0.02); Immature Granulocytes % (auto) 0.2 %; Lymphocytes # (auto) 1.86 K/uL (1.2-3.4); Lymphocytes % (auto) 33.6 %; Mean Corpuscular Hemoglobin 30.4 pg (25-34); Mean Corpuscular Hgb Conc 32.8 g/dL (32-36); Mean Corpuscular Volume 92.6 fL (80-100); Mean Platelet Volume 10.4 fL (7.4-10.4); Monocytes # (auto) 0.61 K/uL (0.11-0.59); Neutrophils # (auto) 2.84 K/uL (1.4-6.5); Neutrophils % (auto) 51.4 %; Platelet Count 195 K/uL (130-400); RDW Coefficient of Variation 12.6 % (11.5-14.5); RDW Standard Deviation 42.8 fL (36.4-46.3); Red Blood Count 4.05 M/uL (4.2-5.4); White Blood Count 5.53 K/uL (4.8-10.8)
[2019-06-17 07:23] LABS: Albumin Level 3.3 gm/dl (3.4-5.0); BUN Creatinine Ratio 18.7 (10-20); Calcium 9.5 mg/dl (8.5-10.1); Creatinine Clr Calc Pharmacy 47.3 ml/min; Est GFR (African American) 94.8; Est GFR (Non-African American) 81.8; Potassium 3.6 mmol/L (3.5-5.1)
[2019-06-17 07:25] LABS: Albumin Globulin Ratio 1.1 (0.9-2); Bilirubin,Total 0.6 mg/dl (0.2-1); Total Protein 6.3 gm/dl (6.4-8.2)
[2019-06-17] MEDS: HEPARIN SOD 5,000 UNIT/0.5 ML VIAL SQ SCH (08:08)
[2019-06-17] MEDS: MELOXICAM 7.5 MG TAB PO SCH (08:08)
[2019-06-17] MEDS ORDERED: NON-FORMULARY MEDICATION (Turmeric 400 MG) PO SCH (09:00)
[2019-06-17] MEDS ORDERED: MIRTAZAPINE TAB 15 MG TAB PO SCH (09:00)
--- NOTE | 2019-06-17 09:38 | Orthopedic Progress Note ---
Date of Service June 17, 2019 Assessment & Plan (1) Osteoarthritis of left hip: Unfortunately, Paula is still dealing with some dizziness and a urinary tract infection. She is on antibiotics and were awaiting final urinary cultures. She is still in some medications for her dizziness. It would be best to hold off on elective hip placement at this time. She will be in the hospital over the weekend. I am planning on doing a left hip replacement on her on Thursday. Hopefully we can get her medically optimized by then. Present on Admission?: Yes Subjective Paula was seen and examined at bedside this morning. Unfortunately she still having some dizziness. We have not received the cultures back yet from her urinalysis. She is still having a lot of hip pain. She would still like to proceed with a right hip replacement. However, the hospitalist saw her this morning and felt it would be best to wait until Thursday. Physical Exam Musculoskeletal: Physical exam of her right hip is unchanged from previous exam. Her left leg is shorter than her right. She has significant pain with any range of motion of her left hip. Results & Data ([facility]) Vital Signs (Past 12 Hours) Vital Signs Temp Pulse Pulse Pulse Resp BP Pulse Ox 06/17/19 07:39 66 06/17/19 07:25 36.8 C 70 18 180/73 H 93 06/17/19 04:16 36.6 C 67 18 165/79 H 98 06/17/19 01:58 72 06/16/19 23:33 36.6 C 74 19 164/88 H 95 PG Care Time/CCT Total # of Minutes Spent Total Time Spent with Patient: Total time spent is greater than 50% in coordination of care (as documented) at patient's floor/unit and/or counseling patient: Coding Level of Care Code 38706 Subseq Hosp Care Lvl 2 Diagnoses Osteoarthritis of left hip M16.12
[2019-06-17] MEDS: cefTRIAXone SODIUM 2,000 MG in DEXTROSE 5% 50 ML IV SCH (11:16)
[2019-06-17] MEDS: LORazepam 0.5 MG TAB PO PRN ×2 (11:18→20:40)
--- NOTE | 2019-06-17 20:03 | Hospitalist Progress Note ---
Date of Service June 17, 2019 Assessment & Plan (1) Benign positional vertigo: Clearly describing longstanding history of BPPV but never had physical therapy for this. Given duration of 40+ years I am not sure there is much efficacy now but recommended they discuss with outpatient provider. Will avoid pre-op as her episodes can last for days and likely to trigger one. Continue meclizine 25 mg p.o. daily as needed for vertigo (2) Acute UTI: Confusion and worsening dizziness possibly due to infection vs. dehydration in setting of severe vertigo attack. Will treat empirically for a UTI. Given elective operation would recommend this is treated prior to any operation. Continue ceftriaxone until urine culture back. (3) Dehydration: Patient was resuscitated in the emergency room with IV fluid. Continue monitoring BUN. (4) Dizziness: Suspect episode on Thursday was just a more severe BPPV attack possibly related to UTI/dehydration. Although difficult to rule out orthostasis in setting of atenolol use - this is much less likely from description given. (5) Osteoarthritis of left hip: Would defer elective operation in setting of UTI and recent severe vertigo till Thursday. Discussed with Dr Horn and operation can be delayed till Thursday while patient remains as an inpatient. She clearly needs this done in the near future as it is severely limiting her ambulation. Clearly severe from her XRs and causing muscle spasms (6) Fall: Hip surgery will definitely help patient to walk better and have better balance. Physical and Occupational Therapy should be planned after surgery. (7) HTN (hypertension): Continue home medicine atenolol 50 mg p.o. nightly. Mildly elevated but in setting of dizziness (possibly orthostatic) will defer increasing her meds (8) Failure to thrive: Continue mirtazapine 15 mg p.o. change to HS to aid with sleep. 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 Unusual place for an isolated stroke therefore suspect this was from a prior head trauma. Unclear if ever caused any symptoms. (10) Paroxysmal atrial tachycardia: Non sustained and relatively insignificant 5 second x2 episodes. However will continue on atenolol to avoid further prolonged episodes. Admission and Anticipated Discharge Date Admission Date: June 16, 2019 Subjective Patient reports feeling generally well. She feels she is back to her baseline. She is unable to give me much of a history regarding how her recent dizziness episode is different from her usual one's. She denies any dysuria, urinary frequency or change in urinary habit. Patient has been feeling bery anxious about this operation and was even given lorazepam to help with this as an outpatient. Her anxiety is very situational and related to this operation therefore she does not wish to go isadora longer term SSRI. Discussed with her daughter at the bedside who reports patient had a usual vertiginous episode on Thursday but was the most severe one she has ever had. She is not eating or drinking well as very anxious about her upcoming surgery. Concern she is unable to cope at home pre-operatively with possible UTI, dehydration, anxiety and vertigo. Review of Systems Review of Systems: All systems reviewed & are unremarkable except as noted in HPI & below Physical Exam Constitutional: well developed and well nourished; no acute distress Eyes: + anicteric sclerae; normal pupil size Neck: trachea midline Respiratory: normal respiratory effort, lungs clear to auscultation normal respiratory effort Cardiovascular: Rate/Rhythm: regular rate and regular rhythm Heart Sounds: no murmur Gastrointestinal (Abdomen): normal bowel sounds, soft, nontender, no hepatosplenomegaly Musculoskeletal: no cyanosis or clubbing, extremities motor strength 5/5 Skin: no rashes, warm and dry Neurologic: moves all extremities and awake Psychiatric: A+Ox3, euthymic affect Results & Data ([facility]) Vital Signs (Past 12 Hours) Vital Signs Temp Pulse Pulse Resp BP BP Pulse Ox 06/17/19 19:39 36.5 C 82 19 158/82 H 95 06/17/19 17:28 81 06/17/19 15:20 36.6 C 84 18 137/79 93 06/17/19 11:39 36.7 C 75 18 144/78 H 97 PG Care Time/CCT Total # of Minutes Spent Total Time Spent with Patient: Total time spent is greater than 50% in coordination of care (as documented) at patient's floor/unit and/or counseling patient: Coding Level of Care Code 02960 Subseq Hosp Care Lvl 2 Diagnoses Benign positional vertigo H81.13 Laterality: bilateral Acute UTI N39.0 Dehydration E86.0 Dizziness R42 Osteoarthritis of left hip M16.12 Osteoarthritis type: primary Fall W19.XXXA Encounter type: initial encounter HTN (hypertension) I10 Hypertension type: essential hypertension Failure to thrive R62.7 Failure to thrive age range: in adult Encephalomalacia on imaging study G93.89 Paroxysmal atrial tachycardia I47.1 (1) Benign positional vertigo Laterality: bilateral Qualified Code(s): H81.13 - Benign paroxysmal vertigo, bilateral (2) Osteoarthritis of left hip Osteoarthritis type: primary Qualified Code(s): M16.12 - Unilateral primary osteoarthritis, left hip (3) Failure to thrive Failure to thrive age range: in adult Qualified Code(s): R62.7 - Adult failure to thrive (4) HTN (hypertension) Hypertension type: essential hypertension Qualified Code(s): I10 - Essential (primary) hypertension (5) Fall Encounter type: initial encounter Qualified Code(s): W19.XXXA - Unspecified fall, initial encounter
[2019-06-17] MEDS: ATENOLOL 50 MG TABLET PO SCH (20:38)
[2019-06-17] MEDS: MIRTAZAPINE TAB 15 MG TAB PO SCH (20:39)
[2019-06-17] MEDS ORDERED: ATENOLOL 25 MG TABLET PO SCH (21:00)
[2019-06-18] MEDS: ENOXAPARIN INJ 30 MG/0.3 ML SYR SQ SCH (07:50)
[2019-06-18] MEDS: MELOXICAM 7.5 MG TAB PO SCH (07:50)
--- NOTE | 2019-06-18 08:02 | Orthopedic Progress Note ---
Date of Service June 18, 2019 Assessment & Plan (1) Osteoarthritis of left hip: The urine cultures came back positive for E. coli. She is currently on antibiotics for UTI. She is still really struggling with her left hip. I still plan on proceeding with a left total hip arthroplasty on THURSDAY. I had clark said Thursday previously. Her and her family are aware of this. If, for any reason, she is not healthy enough to proceed with elective hip replacement surgery thing we can certainly postpone the surgery further. Present on Admission?: Yes Subjective Paula was seen and examined at bedside this morning. She was asleep when I entered the room. Her status has essentially unchanged. I did not feel it was important enough to wake her up for an examination. Results & Data ([facility]) Vital Signs (Past 12 Hours) Vital Signs Temp Pulse Pulse Resp BP BP Pulse Ox 06/18/19 07:27 36.6 C 76 18 161/83 H 97 06/18/19 03:23 36.7 C 72 19 144/76 H 97 06/18/19 00:00 77 06/17/19 23:27 36.4 C L 78 18 131/71 96 PG Care Time/CCT Total # of Minutes Spent Total Time Spent with Patient: Total time spent is greater than 50% in coordination of care (as documented) at patient's floor/unit and/or counseling patient: Coding Level of Care Code 62918 Subseq Hosp Care Lvl 2 Diagnoses Osteoarthritis of left hip M16.12 Osteoarthritis type: primary (1) Osteoarthritis of left hip Osteoarthritis type: primary Qualified Code(s): M16.12 - Unilateral primary osteoarthritis, left hip
[2019-06-18] MEDS: cefTRIAXone SODIUM 2,000 MG in DEXTROSE 5% 50 ML IV SCH (11:51)
[2019-06-18] MEDS: ATENOLOL 50 MG TABLET PO SCH (21:25)
[2019-06-18] MEDS: LORazepam 0.5 MG TAB PO PRN (21:25)
[2019-06-18] MEDS: MIRTAZAPINE TAB 15 MG TAB PO SCH (21:25)
--- NOTE | 2019-06-18 22:38 | Hospitalist Progress Note ---
Date of Service June 18, 2019 Assessment & Plan (1) Osteoarthritis of left hip: She is medically stable for surgery at this time. Unable to cope at home without this operation therefore planned to have as inpatient rather than discharge home. THR planned for Thursday. (2) Benign positional vertigo: Cause of current admission. Consider referral to physical therapy on discharge (will likely need rehab after HTR anyway). Will avoid pre-op ned-[id number] krupa or Epleys pre-op as diagnosis highly suggestive and her episodes can last for days and likely to trigger one. Continue meclizine 25 mg p.o. daily as needed for vertigo (3) Acute UTI: alpha strep, not clear UTI but no clear cause of why her vertiginous episode on Thursday has her worst one ever. Last dose of ceftriaxone today for three day course. (4) Dehydration: Possible cause of bad vertiginous episode which caused her admission. IV fluids given initially but eating/drinking much better now. (5) Dizziness: Suspect episode on Thursday was just a more severe BPPV attack possibly related to UTI/dehydration. Although difficult to rule out orthostasis in se tting of atenolol use - this is much less likely from description given. Her BP have been labile here but with no recurrence of dizziness. (6) Fall: Hip surgery will definitely help patient to walk better and have better balance. Physical and Occupational Therapy should be planned after surgery. (7) HTN (hypertension): Continue home medicine atenolol 50 mg p.o. nightly. Mildly elevated but in setting of dizziness (possibly orthostatic) will defer increasing her meds (8) Failure to thrive: Continue mirtazapine 15 mg p.o. change to HS to aid with sleep and appetite. 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 Unusual place for an isolated stroke therefore suspect this was from a prior head trauma. Unclear if ever caused any symptoms. Patient and daughter aware of this diagnosis. (10) Paroxysmal atrial tachycardia: Moved off telemetry as she was not having any more episodes. On surgical bed awaiting surgery on Thursday. Admission and Anticipated Discharge Date Admission Date: June 16, 2019 Subjective Patient reports feeling well. No acute concerns or complaints at this time. No recurrence of dizziness. No UTI Sx. Review of Systems Review of Systems: All systems reviewed & are unremarkable except as noted in HPI & below Physical Exam Constitutional: well developed and well nourished; no acute distress Eyes: + anicteric sclerae; normal pupil size Neck: trachea midline Respiratory: normal respiratory effort, lungs clear to auscultation Cardiovascular: Rate/Rhythm: regular rate and regular rhythm Heart Sounds: no murmur Gastrointestinal (Abdomen): normal bowel sounds, soft, nontender, no hepatosplenomegaly Musculoskeletal: no cyanosis or clubbing, extremities motor strength 5/5 Skin: no rashes, warm and dry Neurologic: moves all extremities and awake Psychiatric: A+Ox3, euthymic affect Results & Data ([facility]) Vital Signs (Past 12 Hours) Vital Signs Temp Pulse Resp BP Pulse Ox 06/18/19 21:24 81 119/69 06/18/19 15:30 36.5 C 81 16 121/76 95 PG Care Time/CCT Total # of Minutes Spent Total Time Spent with Patient: Total time spent is greater than 50% in coordination of care (as documented) at patient's floor/unit and/or counseling patient: Coding Level of Care Code 98518 Subseq Hosp Care Lvl 1 Diagnoses Osteoarthritis of left hip M16.12 Osteoarthritis type: primary Benign positional vertigo H81.13 Laterality: bilateral Acute UTI N39.0 Dehydration E86.0 Dizziness R42 Fall W19.XXXA Encounter type: initial encounter HTN (hypertension) I10 Hypertension type: essential hypertension Failure to thrive R62.7 Failure to thrive age range: in adult Encephalomalacia on imaging study G93.89 Paroxysmal atrial tachycardia I47.1 (1) Osteoarthritis of left hip Osteoarthritis type: primary Qualified Code(s): M16.12 - Unilateral primary osteoarthritis, left hip (2) Benign positional vertigo Laterality: bilateral Qualified Code(s): H81.13 - Benign paroxysmal vertigo, bilateral (3) Fall Encounter type: initial encounter Qualified Code(s): W19.XXXA - Unspecified fall, initial encounter (4) HTN (hypertension) Hypertension type: essential hypertension Qualified Code(s): I10 - Essential (primary) hypertension (5) Failure to thrive Failure to thrive age range: in adult Qualified Code(s): R62.7 - Adult failure to thrive
[2019-06-19] MEDS: ENOXAPARIN INJ 30 MG/0.3 ML SYR SQ SCH (08:37)
[2019-06-19] MEDS: LORazepam 0.5 MG TAB PO PRN ×2 (11:02→21:26)
[2019-06-19] MEDS: MELOXICAM 7.5 MG TAB PO SCH (18:03)
[2019-06-19] MEDS: DICLOFENAC SOD 1% GEL 100 GM TUBE EXT PRN (18:05)
[2019-06-19] MEDS: ATENOLOL 50 MG TABLET PO SCH (21:27)
[2019-06-19] MEDS: MIRTAZAPINE TAB 15 MG TAB PO SCH (21:27)
--- NOTE | 2019-06-19 23:23 | Hospitalist Progress Note ---
Date of Service June 19, 2019 Assessment & Plan (1) Osteoarthritis of left hip: She is medically stable for surgery at this time. THR planned for Thursday. (2) Benign positional vertigo: Cause of current admission. Consider referral to physical therapy on discharge. Will avoid pre-op as her episodes can last for days and likely to trigger one. Continue meclizine 25 mg p.o. daily as needed for vertigo (3) Acute UTI: alpha strep, not clear UTI but no clear cause of why her vertiginous episode on Thursday has her worst one ever. Rx 3 days of ceftriaxone given. No further antibiotics planned. (4) Dehydration: Possible cause of bad vertiginous episode which caused her admission. IV fluids given initially but eating/drinking much better now. (5) Dizziness: Suspect episode on Thursday was just a more severe BPPV attack possibly related to UTI/dehydration. Although difficult to rule out orthostasis in setting of atenolol use - this is much less likely from description given. (6) Fall: Hip surgery will definitely help patient to walk better and have better balance. Physical and Occupational Therapy should be planned after surgery. (7) HTN (hypertension): Continue home medicine atenolol 50 mg p.o. nightly. Mildly elevated but in setting of dizziness (possibly orthostatic) will defer increasing her meds (8) Failure to thrive: Continue mirtazapine 15 mg p.o. change to HS to aid with sleep. Boost drinks ordered pre-operatively. Feels she cannot manage at home prior to her hip operation. 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 Unusual place for an isolated stroke therefore suspect this was from a prior head trauma. Unclear if ever caused any symptoms. Patient and daughter aware of this diagnosis. (10) Paroxysmal atrial tachycardia: Moved off telemetry as she was not having any more episodes. On surgical bed awaiting surgery on Thursday. Admission and Anticipated Discharge Date Admission Date: June 16, 2019 Continued inpatient stay as unable to manage at home awaiting for elective hip replacement therefore plan to do this in the hospital on Thursday [Dr Horn]. Subjective No acute concerns or questions at this time. No recurrent vertigo episodes. No UTI symptoms. She had some back pain earlier in the day which volatren gel and her usual meloxicam helped. Feels it is because she hasn't been moving so much in hospital. Back pain now gone. Review of Systems Review of Systems: All systems reviewed & are unremarkable except as noted in HPI & below Physical Exam Constitutional: well developed and well nourished; no acute distress Eyes: + anicteric sclerae; normal pupil size Neck: trachea midline Respiratory: normal respiratory effort Musculoskeletal: no cyanosis or clubbing, extremities motor strength 5/5 Skin: no rashes, warm and dry Neurologic: moves all extremities and awake Psychiatric: A+Ox3, euthymic affect Results & Data ([facility]) Vital Signs (Past 12 Hours) Vital Signs Temp Pulse Resp BP BP Pulse Ox 06/19/19 21:04 90 124/80 06/19/19 15:56 36.3 C L 79 16 114/68 98 PG Care Time/CCT Total # of Minutes Spent Total Time Spent with Patient: Total time spent is greater than 50% in coordination of care (as documented) at patient's floor/unit and/or counseling patient: Coding Level of Care Code 38104 Subseq Hosp Care Lvl 1 Diagnoses Osteoarthritis of left hip M16.12 Osteoarthritis type: primary Benign positional vertigo H81.13 Laterality: bilateral Acute UTI N39.0 Dehydration E86.0 Dizziness R42 Fall W19.XXXA Encounter type: initial encounter HTN (hypertension) I10 Hypertension type: essential hypertension Failure to thrive R62.7 Failure to thrive age range: in adult Encephalomalacia on imaging study G93.89 Paroxysmal atrial tachycardia I47.1 (1) Benign positional vertigo Laterality: bilateral Qualified Code(s): H81.13 - Benign paroxysmal vertigo, bilateral (2) Osteoarthritis of left hip Osteoarthritis type: primary Qualified Code(s): M16.12 - Unilateral primary osteoarthritis, left hip (3) Failure to thrive Failure to thrive age range: in adult Qualified Code(s): R62.7 - Adult failure to thrive (4) HTN (hypertension) Hypertension type: essential hypertension Qualified Code(s): I10 - Essential (primary) hypertension (5) Fall Encounter type: initial encounter Qualified Code(s): W19.XXXA - Unspecified fall, initial encounter
[2019-06-20 05:26] LABS: Hematocrit (blood only) 37.6 % (37-47); Hemoglobin 12.2 g/dL (12.0-16.0); Mean Corpuscular Hemoglobin 30.9 pg (25-34); Mean Corpuscular Hgb Conc 32.4 g/dL (32-36); Mean Corpuscular Volume 95.2 fL (80-100); Mean Platelet Volume 10.5 fL (7.4-10.4); Platelet Count 218 K/uL (130-400); RDW Coefficient of Variation 12.9 % (11.5-14.5); RDW Standard Deviation 44.6 fL (36.4-46.3); Red Blood Count 3.95 M/uL (4.2-5.4); White Blood Count 6.65 K/uL (4.8-10.8)
[2019-06-20 06:01] LABS: BUN Creatinine Ratio 31.1 (10-20); Calcium 9.6 mg/dl (8.5-10.1); Creatinine Clr Calc Pharmacy 31.4 ml/min; Est GFR (African American) 67.1; Est GFR (Non-African American) 57.9; Potassium 3.9 mmol/L (3.5-5.1)
--- NOTE | 2019-06-20 07:51 | Orthopedic Progress Note ---
Date of Service June 20, 2019 Assessment & Plan (1) Osteoarthritis of left hip: We plan to proceed with a left hip replacement tomorrow. I made her n.p.o. this morning. It looks like she will be given her last dose of Lovenox at 9:00 this morning. She is ready to proceed. Present on Admission?: Yes Subjective Paula was seen and examined at bedside this morning. Overall she is doing fairly well. She is not having any pain during urination. She is not having any dizziness. She says she feels fine and is ready for hip replacement surgery tomorrow. Physical Exam Musculoskeletal: On physical examination of the left hip, her left leg is shorter than her right. She is neurovascular intact. She has pain with range of motion. Results & Data ([facility]) Vital Signs (Past 12 Hours) Vital Signs Temp Pulse Resp BP Pulse Ox 06/19/19 22:53 37.1 C 77 16 112/70 97 06/19/19 21:04 90 124/80 PG Care Time/CCT Total # of Minutes Spent Total Time Spent with Patient: Total time spent is greater than 50% in coordination of care (as documented) at patient's floor/unit and/or counseling patient: Coding Level of Care Code 88807 Subseq Hosp Care Lvl 2 Diagnoses Osteoarthritis of left hip M16.12 Osteoarthritis type: primary (1) Osteoarthritis of left hip Osteoarthritis type: primary Qualified Code(s): M16.12 - Unilateral primary osteoarthritis, left hip
[2019-06-20] MEDS ORDERED: ENOXAPARIN INJ 30 MG/0.3 ML SYR SQ ONE (09:00)
[2019-06-20] MEDS: MELOXICAM 7.5 MG TAB PO SCH (09:08)
[2019-06-20] MEDS: LORazepam 0.5 MG TAB PO PRN ×2 (09:08→20:05)
[2019-06-20] MEDS: DICLOFENAC SOD 1% GEL 100 GM TUBE EXT PRN ×2 (09:09→20:35)
--- NOTE | 2019-06-20 18:06 | Anesthesiology Consultation ---
Date of Service June 20, 2019 History Surgery Operation Date: 06/21/19 12:30 Proposed Procedures p Left Anterior Total Hip Arthroplasty - Alfonzo Horn, Height/Weight Height: 5 ft Weight: 46.9 kg Allergies Allergy/AdvReac Type Severity Reaction Status Date / Time No Known Allergies Allergy Unverified 06/16/19 09:41 Medications Home Medications Medication Instructions Recorded Confirmed Last Taken meloxicam 7.5 mg PO DAILY 11/04/18 06/16/19 Unknown turmeric 400 mg PO DAILY 11/04/18 06/16/19 Unknown atenolol 50 mg PO HS 05/09/19 06/16/19 06/15/19 hydrocodone 5 mg-acetaminophen 325 1 tab PO Q8H PRN #30 tab 05/16/19 06/16/19 06/16/19 mg tablet meclizine 25 mg tablet 25 mg PO DAILY PRN 05/16/19 06/16/19 06/16/19 2 tablets tramadol 50 mg tablet 50 mg PO BID PRN 06/06/19 06/16/19 Unknown mirtazapine 15 mg tablet 15 mg PO DAILY #30 tab 06/07/19 06/16/19 Unknown lorazepam 0.5 mg tablet 0.5 mg PO BID PRN #30 tab 06/13/19 06/16/19 06/15/19 Active Medications Generic Name Dose Route Start Last Admin Trade Name Freq PRN Reason Stop Dose Admin Hydrocodone Bitart/Acetaminophen 1 tab 06/16/19 17:24 06/20/19 00:10 [place] 5/325 PO 06/30/19 17:23 1 tab Q8H PRN Administration Pain Atenolol 50 mg 06/17/19 21:00 06/19/19 21:27 Tenormin PO 07/17/19 20:59 50 mg HS JACK Administration Diclofenac Sodium 4 gm 06/19/19 15:36 06/20/19 09:09 Voltaren 1% Top EXT 07/19/19 15:35 4 gm Q12H PRN Administration back pain Lorazepam 0.5 mg 06/16/19 16:30 06/20/19 09:08 Ativan PO 07/16/19 16:29 0.5 mg BID PRN Administration anxiety Meloxicam 7.5 mg 06/19/19 18:00 06/20/19 09:08 Mobic PO 07/19/19 17:59 7.5 mg QAM JACK Administration Mirtazapine 15 mg 06/17/19 21:00 06/19/19 21:27 Remeron PO 07/17/19 20:59 15 mg HS JACK Administration Past Medical History Medical History 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 Degenerative disc disease Depression situational ( 06/2018) Dizziness + hx vertigo/dizziness- PCP monitoring History of high blood pressure History of vertigo Nausea Scoliosis deformity of spine Past Family History Family History Mother Family history of stroke Father Family history of stroke Other Family history of prostate cancer in father Denies family history of Ovarian cancer Prostate cancer Myocardial infarction Breast cancer Colorectal cancer Past Surgical History Surgical History History of bilateral cataract extraction History of hysterectomy Social History Smoking Status: Never smoker Hx Alcohol Use: No Hx Substance Use: No substance use type: does not use Physical Exam Vital Signs Last Vital Signs Temp 36.6 C 06/20/19 15:20 Pulse 75 06/20/19 15:20 Resp 18 06/20/19 15:20 BP 131/78 06/20/19 15:20 Pulse Ox 98 06/20/19 15:20 Testing Laboratory Results 06/20/19 05:04 06/20/19 05:04 PT 10.7 Seconds (9.0-12.0) 06/16/19 09:28 INR 1.0 (0.9-1.1) 06/16/19 09:28 Urine Color Yellow 06/16/19 09:25 Urine Appearance Cloudy (Clear) A 06/16/19 09:25 Urine pH 5.5 (4.5-7.5) 06/16/19 09:25 Ur Specific [place] 1.018 (1.000-1.030) 06/16/19 09:25 Urine Protein 2+ (Negative) H 06/16/19 09:25 Urine Glucose (UA) Negative (Negative) 06/16/19 09:25 Urine Ketones Negative (Negative) 06/16/19 09:25 Urine Nitrite Negative (Negative) 06/16/19 09:25 Ur Leukocyte Esterase 2+ (Negative) H 06/16/19 09:25 Urine WBC (Auto) >30 /hpf (0-5) H 06/16/19 09:25 Urine RBC (Auto) 10-30 /hpf (0-4) H 06/16/19 09:25 U Hyaline Cast (Auto) 1-5 /lpf (0-5) 06/16/19 09:25 U Epithel Cells (Auto) 0-5 /lpf (0-5) 06/16/19 09:25 Urine Bacteria (Auto) 1+ (Negative) H 06/16/19 09:25 Blood Type O Positive 06/20/19 14:36 Antibody Screen NEGATIVE 06/20/19 14:36 06/16/19 09:25 Urine Culture - Final Urine,Straight Cath Alpha strep. not enterococcus
--- NOTE | 2019-06-20 18:09 | Hospitalist Progress Note ---
Date of Service June 20, 2019 Assessment & Plan (1) Benign positional vertigo: No complaints of this today (2) Acute UTI: UTI versus asymptomatic bacteriuriaeither way was treated with ceftriaxone. No symptoms, no need for ongoing treatment (3) Dehydration: Probable cause of bad vertiginous episode which caused her admission. IV fluids given initially but eating/drinking much better now. (4) Dizziness: Suspect episode on Thursday was either a more severe BPPV attack possibly related to UTI/dehydration. Follow postop (5) Osteoarthritis of left hip: Seems that a lot of her struggles at home or failure to thrive from hip pain interrupting her ability to live a normal life. For surgery tomorrow. (6) Fall: Hip surgery will have a clear goal of helping patient to walk better and have better balance. Physical and Occupational Therapy postop (7) HTN (hypertension): Pressures reasonable, continue current care and follow (8) Failure to thrive: Continue mirtazapine 15 mg p.o. change to HS to aid with sleep and appetite. 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 Unusual place for an isolated stroke therefore suspect this was from a prior head trauma. Unclear if ever caused any symptoms. Patient and daughter aware of this diagnosis per previous hospitalist. (10) Paroxysmal atrial tachycardia: No issues regarding this now (11) Discharge planning issues: After surgery, PT/OT eval and treat. Anticipate high likelihood of needing some form of rehab facility after discharge. (12) DVT prophylaxis: Was on Lovenoxnow held for surgery. Postop per orthopedics Admission and Anticipated Discharge Date Admission Date: June 16, 2019 Subjective Okay at rest, lots of hip pain with exertion. For surgery tomorrow, she is understandably somewhat nervous, but is optimistic. Understands she will likely need to do a lot of therapy/rehab. No other new complaints. Review of Systems Review of Systems: All systems reviewed & are unremarkable except as noted in HPI & below Physical Exam Physical Exam: Awake and alert pleasant no distress. HEENT normocephalic atraumatic mucous membranes moist. Breathing unlabored no accessory muscle use good effort. Skin shows no rashes no pallor or icterus. Neuro shows cranial nerves II through XII are grossly intact gross motor and sensory are intact. Results & Data ([facility]) Vital Signs (Past 12 Hours) Vital Signs Temp Pulse Pulse Resp BP BP Pulse Ox 06/20/19 15:20 97.9 F 75 18 131/78 98 06/20/19 07:53 97.3 F L 66 14 114/76 97 PG Care Time/CCT Total # of Minutes Spent Total Time Spent with Patient: Total time spent is greater than 50% in coordination of care (as documented) at patient's floor/unit and/or counseling patient: Coding Level of Care Code 31538 Subseq Hosp Care Lvl 2 Diagnoses Benign positional vertigo H81.13 Laterality: bilateral Acute UTI N39.0 Dehydration E86.0 Dizziness R42 Osteoarthritis of left hip M16.12 Osteoarthritis type: primary Fall W19.XXXA Encounter type: initial encounter HTN (hypertension) I10 Hypertension type: essential hypertension Failure to thrive R62.7 Failure to thrive age range: in adult Encephalomalacia on imaging study G93.89 Paroxysmal atrial tachycardia I47.1 Discharge planning issues Z02.9 DVT prophylaxis Z29.9 (1) Benign positional vertigo Laterality: bilateral Qualified Code(s): H81.13 - Benign paroxysmal vertigo, bilateral (2) Osteoarthritis of left hip Osteoarthritis type: primary Qualified Code(s): M16.12 - Unilateral primary osteoarthritis, left hip (3) Fall Encounter type: initial encounter Qualified Code(s): W19.XXXA - Unspecified fall, initial encounter (4) HTN (hypertension) Hypertension type: essential hypertension Qualified Code(s): I10 - Essential (primary) hypertension (5) Failure to thrive Failure to thrive age range: in adult Qualified Code(s): R62.7 - Adult failure to thrive
--- NOTE | 2019-06-20 18:25 | Anesthesiology Consultation ---
Date of Service June 20, 2019 The patient was originally scheduled for surgery on 06/17/19. She admitted to the hospital on 06/16/19 with a UTI so her surgery was postponed. Her UTI is now resolving so she will have surgery. She was given a dose of Lovenox at 0900 this AM. By the time of her surgery, it will have been over 24 hours and her renal function is good so she is an acceptable candidate for spinal from an anticoagulation standpoint. The patient was thought to be confused by her nurse so consent was obtained over the phone by her [id number], Marah. However, the patient appeared to understand that she was having surgery tomorrow and may be okay to sign her own consent tomorrow. Assessment & Plan (1) Encounter for pre-operative examination: Chart Review Chart Review: Acceptable Risk for Surgery and Patient NOT seen in Pre Admission Testing Consults Requested none medicine is following History Surgery Operation Date: 06/21/19 12:30 Proposed Procedures p Left Anterior Total Hip Arthroplasty - Alfonzo Horn, Height/Weight Height: 5 ft Weight: 46.9 kg Allergies Allergy/AdvReac Type Severity Reaction Status Date / Time No Known Allergies Allergy Unverified 06/16/19 09:41 Medications Home Medications Medication Instructions Recorded Confirmed Last Taken meloxicam 7.5 mg PO DAILY 11/04/18 06/16/19 Unknown turmeric 400 mg PO DAILY 11/04/18 06/16/19 Unknown atenolol 50 mg PO HS 05/09/19 06/16/19 06/15/19 hydrocodone 5 mg-acetaminophen 325 1 tab PO Q8H PRN #30 tab 05/16/19 06/16/19 06/16/19 mg tablet meclizine 25 mg tablet 25 mg PO DAILY PRN 05/16/19 06/16/19 06/16/19 2 tablets tramadol 50 mg tablet 50 mg PO BID PRN 06/06/19 06/16/19 Unknown mirtazapine 15 mg tablet 15 mg PO DAILY #30 tab 06/07/19 06/16/19 Unknown lorazepam 0.5 mg tablet 0.5 mg PO BID PRN #30 tab 06/13/19 06/16/19 06/15/19 Active Medications Generic Name Dose Route Start Last Admin Trade Name Freq PRN Reason Stop Dose Admin Hydrocodone Bitart/Acetaminophen 1 tab 03/05/20 17:24 06/20/19 00:10 [place] 5/325 PO 06/30/19 17:23 1 tab Q8H PRN Administration Pain Atenolol 50 mg 06/17/19 21:00 06/19/19 21:27 Tenormin PO 07/17/19 20:59 50 mg HS JACK Administration Diclofenac Sodium 4 gm 06/19/19 15:36 06/20/19 09:09 Voltaren 1% Top EXT 07/19/19 15:35 4 gm Q12H PRN Administration back pain Lorazepam 0.5 mg 06/16/19 16:30 06/20/19 09:08 Ativan PO 07/16/19 16:29 0.5 mg BID PRN Administration anxiety Meloxicam 7.5 mg 06/19/19 18:00 06/20/19 09:08 Mobic PO 07/19/19 17:59 7.5 mg QAM JACK Administration Mirtazapine 15 mg 06/17/19 21:00 06/19/19 21:27 Remeron PO 07/17/19 20:59 15 mg HS JACK Administration Past Medical History Medical History 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 Degenerative disc disease Depression situational ( 06/2018) Dizziness + hx vertigo/dizziness- PCP monitoring History of high blood pressure History of vertigo Nausea Scoliosis deformity of spine Past Family History Family History Mother Family history of stroke Father Family history of stroke Other Family history of prostate cancer in father Denies family history of Ovarian cancer Prostate cancer Myocardial infarction Breast cancer Colorectal cancer Past Surgical History Surgical History History of bilateral cataract extraction History of hysterectomy Social History Smoking Status: Never smoker Hx Alcohol Use: No Hx Substance Use: No substance use type: does not use Physical Exam Vital Signs Last Vital Signs Temp 36.6 C 06/20/19 15:20 Pulse 75 06/20/19 15:20 Resp 18 06/20/19 15:20 BP 131/78 06/20/19 15:20 Pulse Ox 98 06/20/19 15:20 ENMT Mouth: + dentures Thyromental Distance: > or= 3.5 Finger Breadths Mallampati Class: II Neck normal visual inspection Respiratory normal respiratory effort Auscultation: lungs clear to auscultation bilaterally Cardiovascular Rate/Rhythm: regular rate and regular rhythm Musculoskeletal Spine: no pain with cervical ROM Neurologic moves all extremities Psychiatric Orientation: alert and oriented x 3 (patient understood she was having surgery) Testing Laboratory Results 06/20/19 05:04 06/20/19 05:04 PT 10.7 Seconds (9.0-12.0) 06/16/19 09:28 INR 1.0 (0.9-1.1) 06/16/19 09:28 Urine Color Yellow 06/16/19 09:25 Urine Appearance Cloudy (Clear) A 06/16/19 09:25 Urine pH 5.5 (4.5-7.5) 06/16/19 09:25 Ur Specific [place] 1.018 (1.000-1.030) 06/16/19 09:25 Urine Protein 2+ (Negative) H 06/16/19 09:25 Urine Glucose (UA) Negative (Negative) 06/16/19 09:25 Urine Ketones Negative (Negative) 06/16/19 09:25 Urine Nitrite Negative (Negative) 06/16/19 09:25 Ur Leukocyte Esterase 2+ (Negative) H 06/16/19 09:25 Urine WBC (Auto) >30 /hpf (0-5) H 06/16/19 09:25 Urine RBC (Auto) 10-30 /hpf (0-4) H 06/16/19 09:25 U Hyaline Cast (Auto) 1-5 /lpf (0-5) 06/16/19 09:25 U Epithel Cells (Auto) 0-5 /lpf (0-5) 06/16/19 09:25 Urine Bacteria (Auto) 1+ (Negative) H 06/16/19 09:25 Blood Type O Positive 06/20/19 14:36 Antibody Screen NEGATIVE 06/20/19 14:36 06/16/19 09:25 Urine Culture - Final Urine,Straight Cath Alpha strep. not enterococcus Electrocardiogram Date: 06/16/19 Findings: + NSR @ (64) Chest X-Ray Date: 06/16/19 XR chest 1V portable CLINICAL HISTORY: dizziness COMPARISON STUDY: Chest radiograph November 04, 2018. FINDINGS: Note is made of scoliosis of the thoracolumbar spine. Suspected left pleural calcified plaque is noted. There are old right rib fractures. Mild cardiomegaly is noted without evidence for pulmonary edema. There is no consolidation to suggest pneumonia. Old right clavicular fracture is noted. IMPRESSION: No acute cardiopulmonary findings. ACT 112: Negative or not required by law. Electronically signed by: Jem Choudhury M.D. 06/16/2019 9:50 AM Dictated: 06/16/1949 Transcribed: 06/16/19948 Other Testing ADDENDUM Addendum: The first sentence of the findings section should read: No acute intracranial hemorrhage, midline shift or mass effect is present. Results electronically sent 06/16/2019 10:50 AM to: Fanta Howard DO Electronically signed by: Jem Choudhury M.D. 06/16/2019 10:[address] OF THE HEAD WITHOUT CONTRAST CLINICAL HISTORY: trauma, dizziness COMPARISON STUDY: No previous studies for comparison. TECHNIQUE: Helical axial images of the head were obtained without IV contrast. Automated exposure control was utilized for the study. A dose lowering technique was utilized adhering to the principles of ALARA. FINDINGS: Acute intracranial hemorrhage, midline shift or mass effect is present. Right frontal lobe encephalomalacia is noted. White matter hypodensity suggests small vessel disease. Mild ventricular dilatation is likely due to c entral atrophy. Basilar cisterns are patent. There are no extra axial collections. There is no calvarial fracture. IMPRESSION: 1. No acute intracranial findings. 2. No calvarial fracture. 3. Right frontal lobe encephalomalacia. ACT 112: Negative or not required by law. Electronically signed by: Jem Choudhury M.D. 06/16/2019 10:01 AM Dictated: 06/16/1957 Transcribed: 06/16/1957
[2019-06-20] MEDS: MIRTAZAPINE TAB 15 MG TAB PO SCH (20:05)
[2019-06-20] MEDS: ATENOLOL 50 MG TABLET PO SCH (20:05)
[2019-06-21] MEDS ORDERED: ROPIVACAINE 0.5% HCL/PF 150 MG, BUPIVACAINE 0.5% MPF 30 ML, EPINEPHrine 30MG/30ML (OR U... INSTIL SCH (06:00)
[2019-06-21] MEDS ORDERED: TRANEXAMIC ACID 1,000 MG **IV Intra-op IV SCH (06:00)
[2019-06-21] MEDS ORDERED: TRANEXAMIC ACID 1,000 MG **IV Pre-op IV SCH (06:00)
[2019-06-21] MEDS: MELOXICAM 7.5 MG TAB PO SCH (08:53)
--- NOTE | 2019-06-21 11:18 | History & Physical Bridge Note ---
Date of Service June 21, 2019 History & Physical Bridge Note I have examined the patient, reviewed the History & Physical and in the interval since the performance of the History & Physical I have noted the following changes of clinical significance: no changes noted
[2019-06-21] MEDS ORDERED: ATROPINE SULFATE 0.1 MG/ML 10ML SYR IV PRN (11:48)
[2019-06-21] MEDS ORDERED: ePHEDrine sulfate 50 MG/ML AMP IV PRN (11:48)
[2019-06-21] MEDS ORDERED: ONDANSETRON INJ 2 MG/ML 2 ML VIAL IV PRN ×2 (11:48→16:58)
[2019-06-21] MEDS ORDERED: fentaNYL citrate 100 MCG/2 ML VIAL IV PRN (11:48)
[2019-06-21] MEDS ORDERED: ORTHO JOINT ANESTHETIC ONE (12:05)
[2019-06-21] MEDS ORDERED: TRANEXAMIC ACID / 0.7% NACL 1,000 MG/100 ML BAG IV STA ×2 (13:54→13:56)
[2019-06-21] MEDS ORDERED: CEFAZOLIN 1000MG 1,000 MG/7.5 ML SYR IV SCH (14:00)
--- NOTE | 2019-06-21 14:22 | Operative Report ---
PG Post Operative Report Pre & Post Diagnosis Operation Date: 06/21/19 12:30 Pre-Op Diagnosis: Left Hip Osteoarthritis Post-Op Diagnosis: Left Hip Osteoarthritis I identified the patient and participated in the time-out.: Yes Procedure Operation Date: 06/21/19 12:30 Actual Procedures p Left Anterior Total Hip Arthroplasty - Alfonzo Horn DO Surgeon Alfonzo Horn, Flooring Mechanic Alfonzo Griffiths PAC Estimated Blood Loss 150 Findings Consistent with Post-Op Diagnosis Specimens Left total hip arthroplasty Complications none Disposition Disposition: Recovery Room Indications 8-year-old female who is been dealing with severe osteoarthritis of her left hi p. It has been debilitating. She cannot live with her hip the way it is. She is unable to ambulate. After long discussions with her and her family regarding her age, she elected to proceed with a left total hip arthroplasty. Description of Procedure Implants used I used a Biomet Taperloc total hip arthroplasty system with a size 9 high offset Taperloc stem, a 46 mm G7 cup with a 25mm screw, an E1 polyethylene liner, a 32 mm ceramic head with a +0 neck. Paula came down from her hospital room for the above procedure. She was seen in the preoperative holding area and the operative extremity was identified and signed. She was given a spinal anesthetic, a preoperative antibiotic, and TXA. She was then taken back to the operating room and laid on the table in the supine position. She was given basic sedation. The operative leg was secured to a Puristst leg positioner. The hip was then prepped and draped in sterile fashion. A timeout was done and the patient and the operative extremity was properly identified. An anterior approach was used. Dissection was taken down through the fascia and the tensor muscle belly was retracted laterally and the rectus was retracted medially. The circumflex vessels were identified and ligated. The capsule was then incised and tagged for later repair. The femoral neck was then cut and the femoral head was removed. The acetabulum was exposed. Time was spent doing a complete circumferential labral release. Sequential reaming of the acetabulum up to a size 45 reamer was done. Final reamings were done under fluoroscopy to ensure appropriate version. A Biomet 46 mm G7 cup was then impacted into place. A single 25 mm screw was placed. The E1 polyethylene liner was then snapped into place. Surrounding soft tissues were then injected with 100 cc of an orthopedic pain control cocktail. The proximal femur was then exposed. Sequential broaching up to a size 9 broach was done. Off that broach a size 32 head with a +0 neck was trialed. The hip was reduced and fluoroscopic images showed anatomic alignment of the implants in acceptable length. The broach was removed. The final size 9 high offset Taperloc stem was then impacted into place. A ceramic 32 mm head with a +0 neck was then impacted onto the stem and the hip was reduced. Final fluoroscopic images showed anatomic alignment of the hip. The capsule was then closed with #1 Vicryl suture. A dilute betadyne lavage was then done for 3 minutes. The joint was then irrigated with normal saline solution. The fascia was closed with #1 PDS suture. Skin was closed with 2-0 Vicryl, josse, and a Latia VAC dressing. She was then transferred to a hospital bed and taken to the post anesthesia care unit in stable condition. She tolerated the procedure well. Alfonzo Griffiths PA-C, was present for the entire procedure. He was critical for patient positioning, prepping, draping, retraction exposure, wound closure and application of sterile dressing. I attest to the content of the Intraoperative Record and any orders documented therein. Any exceptions are noted below.
--- NOTE | 2019-06-21 14:36 | Fluoroscopy Report ---
FL hip LT 1V CLINICAL HISTORY: LT ANTERIOR TOTAL COMPARISON STUDY: None FLUOROSCOPY TIME: 24 seconds NUMBER OF FLUOROSCOPIC IMAGES: 2 FINDINGS: Image intensifier utilization for total left hip arthroplasty. IMPRESSION: Image intensifier support for a total left hip arthroplasty. ACT 112: Negative or not required by law. The above report was generated using voice recognition software. It may contain grammatical, syntax or spelling errors. Electronically signed by: Dmitry Frances M.D. 06/21/2019 2:35 PM
--- NOTE | 2019-06-21 15:30 | Anesthesia Procedure Note ---
Date of Service June 21, 2019 Anesthesia Post Epidural Note Vital Signs Vital Signs: Temp Pulse Resp BP Pulse Ox 36.6 C 63 12 123/67 98 06/21/19 15:25 06/21/19 15:25 06/21/19 15:25 06/21/19 15:25 06/21/19 15:25 Pain Intensity Left Hip: Pain Intensity: 0 Notes Mental Status: alert / awake / arousable and participated in evaluation Nausea / Vomiting: adequately controlled Pain: adequately controlled Airway Patency, RR, SpO2: stable & adequate BP & HR: stable & adequate Hydration State: stable & adequate Neuraxial Anesthesia: was administered and sensory block is resolving Anesthetic Complications: no major complications apparent Epidural: Removed without complications and With tip intact
--- NOTE | 2019-06-21 15:37 | XRay Report ---
XR hip 1V LT w pelvis HISTORY: 88 years-old Female IN PACU - A/P PELVIS and LATERAL HIP left hip total joint arthroplasty COMPARISON: Pelvis radiograph 06/16/2019 TECHNIQUE: AP view of the pelvis with crosstable lateral view of the left hip FINDINGS: Left hip total joint arthroplasty demonstrates satisfactory alignment. No acute fracture or retained foreign body or dislocation. Lateral skin joses are noted along with expected postsurgical soft tis jennifer swelling and deep tissue air with surgical drainage catheter. Moderate right hip osteoarthritis. Demineralized appearance of the bones. Vascular calcifications. IMPRESSION: Left hip total joint arthroplasty with expected postoperative findings. ACT 112: Negative or not required by law. The above report was generated using voice recognition software. It may contain grammatical, syntax o r spelling errors. Electronically signed by: Baljit Newton M.D. 06/21/2019 3:35 PM
[2019-06-21] MEDS ORDERED: NALOXONE HCL 0.4 MG/1 ML VIAL/CARP IV PRN (16:33)
[2019-06-21] MEDS ORDERED: METOCLOPRAMIDE HCL INJ 5 MG/ML 2 ML VIAL IV PRN (16:33)
--- NOTE | 2019-06-21 16:40 | Anesthesiology Progress Note ---
Date of Service June 21, 2019 Anesthesia Post Procedure Vital Signs Vital Signs: Temp Pulse Pulse Pulse Pulse Resp BP 06/21/19 16:38 65 06/21/19 16:37 36.2 C L 68 12 132/65 06/21/19 15:45 36.6 C 63 16 141/68 H 06/21/19 15:35 36.6 C 83 15 138/82 06/21/19 15:25 36.6 C 63 12 123/67 06/21/19 15:15 36.6 C 65 16 148/66 H 06/21/19 15:05 62 15 140/71 06/21/19 14:55 64 16 122/56 L 06/21/19 14:48 36.2 C L 69 16 122/58 L 06/21/19 11:25 36.7 C 68 20 154/73 H 06/21/19 07:29 06/21/19 07:00 36.6 C 66 19 06/20/19 23:45 36.7 C 70 16 06/20/19 20:03 75 BP Pulse Ox Pulse Ox 06/21/19 16:38 06/21/19 16:37 98 06/21/19 15:45 97 06/21/19 15:35 100 06/21/19 15:25 98 06/21/19 15:15 98 06/21/19 15:05 96 06/21/19 14:55 100 06/21/19 14:48 100 06/21/19 11:25 98 06/21/19 07:29 92 06/21/19 07:00 119/63 91 06/20/19 23:45 135/74 96 06/20/19 20:03 117/69 Pain Intensity Left Hip: Pain Intensity: 0 Transfer of Care Handoff Completed per policy Notes Mental Status: alert / awake / arousable Patient Amnestic to Procedure: Yes Nausea / Vomiting: adequately controlled Pain: adequately controlled Airway Patency, RR, SpO2: stable & adequate BP & HR: stable & adequate Hydration State: stable & adequate Neuraxial Anesthesia: was administered and sensory block is resolving Anesthetic Complications: no major complications apparent
[2019-06-21] MEDS ORDERED: bisacodyL 10 MG SUPP PR PRN (16:58)
[2019-06-21] MEDS ORDERED: MAGNESIUM HYDROXIDE SUSP 30 ML UDC PO PRN (16:58)
[2019-06-21] MEDS ORDERED: OXYCODONE HCL IR 5 MG TAB (IMMEDIATE RELEASE) PO PRN (17:00)
[2019-06-21] MEDS ORDERED: HYDROmorphone INJ 0.5 MG/0.5 ML SYR IV PRN (17:00)
[2019-06-21] MEDS: SODIUM CHLORIDE 0.9% 1000ML 1,000 ML IV SCH (17:02)
--- NOTE | 2019-06-21 19:20 | Hospitalist Progress Note ---
Date of Service June 21, 2019 Assessment & Plan (1) Osteoarthritis of left hip: Seems that a lot of her struggles at home or failure to thrive from hip pain interrupting her ability to live a normal life. now post op - PT/OT eval and treat, anticipate rehab placement in the next day or two depending on her progress (2) Delirium: multifactorial related to being in the hospital as major factor. reassurance, redirecting strategies discussed with family. reorientation/etc for pt. no role for antipsychotics since she is not risking harm to herself or others. (3) Benign positional vertigo: No complaints of this today (4) Acute UTI: UTI versus asymptomatic bacteriuriaeither way was treated with ceftriaxone. No symptoms, no need for ongoing treatment (5) Dehydration: Probable cause of bad vertiginous episode which caused her admission. IV fluids given initially but eating/drinking much better now. follow clinically (6) Dizziness: Suspect episode on Thursday was either a more severe BPPV attack possibly related to UTI/dehydration. Follow postop (7) Fall: Hip surgery will have a clear goal of helping patient to walk better and have better balance. Physical and Occupational Therapy postop - anticipate rehab (8) HTN (hypertension): blood pressure showing reasonable control, continue to follow (9) Failure to thrive: Continue mirtazapine 15 mg p.o. change to HS to aid with sleep and appetite. 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 Unusual place for an isolated stroke therefore suspect this was from a prior head trauma. Unclear if ever caused any symptoms. Patient and daughter aware of this diagnosis per previous hospitalist. (11) Paroxysmal atrial tachycardia: No issues regarding this now (12) DVT prophylaxis: Was on Lovenoxnow held for surgery. Postop per orthopedics (13) Discharge planning issues: PT/OT eval and treat, plan for rehab Admission and Anticipated Discharge Date Admission Date: June 16, 2019 Subjective feeling ok post op. sent to telemetry but no overt intraop complications noted. no significant pain. no cp no sob. family present - somewhat upset about a new room given that she's been a bit delirious and they noted that when she gets that way changes in rooms do cause her some troubles. tried to offer reassurance, support, redirecting strategies as best as possible Review of Systems Review of Systems: All systems reviewed & are unremarkable except as noted in HPI & below difficult to obtain but seems to be otherwise negative Physical Exam Physical Exam: gen awake and alert, pleasant but mildly anxious, no distress. heent nc at mmm. cardio reg no r/m/g, lungs cta b/l no r/r/w good effort. skin no rashes no pallor or icterus. ext no c/c/e no calf tenderness. no focal neuro deficits. Results & Data ([facility]) Vital Signs (Past 12 Hours) Vital Signs Temp Pulse Pulse Pulse Pulse Resp BP 06/21/19 18:21 97.9 F 78 16 121/71 06/21/19 17:18 97.2 F L 75 21 144/78 H 06/21/19 16:38 65 06/21/19 16:37 97.2 F L 68 12 132/65 06/21/19 15:45 97.9 F 63 16 141/68 H 06/21/19 15:35 97.9 F 83 15 138/82 06/21/19 15:25 97.9 F 63 12 123/67 06/21/19 15:15 97.9 F 65 16 148/66 H 06/21/19 15:05 62 15 140/71 06/21/19 14:55 64 16 122/56 L 06/21/19 14:48 97.2 F L 69 16 122/58 L 06/21/19 11:25 98.1 F 68 20 154/73 H 06/21/19 07:29 Pulse Ox Pulse Ox 06/21/19 18:21 98 06/21/19 17:18 96 06/21/19 16:38 06/21/19 16:37 98 06/21/19 15:45 97 06/21/19 15:35 100 06/21/19 15:25 98 06/21/19 15:15 98 06/21/19 15:05 96 06/21/19 14:55 100 06/21/19 14:48 100 06/21/19 11:25 98 06/21/19 07:29 92 PG Care Time/CCT Total # of Minutes Spent Total Time Spent with Patient: Total time spent is greater than 50% in coordination of care (as documented) at patient's floor/unit and/or counseling patient: Coding Level of Care Code 17952 Subseq Hosp Care Lvl 2 Diagnoses Osteoarthritis of left hip M16.12 Osteoarthritis type: primary Delirium R41.0 Benign positional vertigo H81.13 Laterality: bilateral Acute UTI N39.0 Dehydration E86.0 Dizziness R42 Fall W19.XXXA Encounter type: initial encounter HTN (hypertension) I10 Hypertension type: essential hypertension Failure to thrive R62.7 Failure to thrive age range: in adult Encephalomalacia on imaging study G93.89 Paroxysmal atrial tachycardia I47.1 DVT prophylaxis Z29.9 Discharge planning issues Z02.9 (1) Benign positional vertigo Laterality: bilateral Qualified Code(s): H81.13 - Benign paroxysmal vertigo, bilateral (2) Osteoarthritis of left hip Osteoarthritis type: primary Qualified Code(s): M16.12 - Unilateral primary osteoarthritis, left hip (3) Fall Encounter type: initial encounter Qualified Code(s): W19.XXXA - Unspecified fall, initial encounter (4) HTN (hypertension) Hypertension type: essential hypertension Qualified Code(s): I10 - Essential (primary) hypertension (5) Failure to thrive Failure to thrive age range: in adult Qualified Code(s): R62.7 - Adult failure to thrive
[2019-06-21] MEDS: CEFAZOLIN 2000MG 2,000 MG/15 ML SYR IV SCH (20:29)
[2019-06-21] MEDS: ACETAMINOPHEN 500 MG TAB PO SCH (20:32)
[2019-06-21] MEDS: DOCUSATE SODIUM 100 MG CAP PO SCH (20:33)
[2019-06-21] MEDS: SENNA 8.6 MG TAB PO SCH (20:33)
[2019-06-21] MEDS: ATENOLOL 50 MG TABLET PO SCH (20:34)
[2019-06-21] MEDS: MIRTAZAPINE TAB 15 MG TAB PO SCH (20:34)
[2019-06-22] MEDS: SODIUM CHLORIDE 0.9% 1000ML 1,000 ML IV SCH ×3 (03:05→14:25)
[2019-06-22] MEDS: CEFAZOLIN 2000MG 2,000 MG/15 ML SYR IV SCH (06:04)
[2019-06-22] MEDS: ACETAMINOPHEN 500 MG TAB PO SCH ×3 (06:05→20:37)
[2019-06-22 07:15] LABS: Hematocrit (blood only) 33.4 % (37-47); Hemoglobin 10.9 g/dL (12.0-16.0); Immature Granulocytes # (auto) 0.03 K/uL (0.00-0.02); Immature Granulocytes % (auto) 0.2 %; Lymphocytes # (auto) 0.89 K/uL (1.2-3.4); Lymphocytes % (auto) 7.2 %; Mean Corpuscular Hemoglobin 30.4 pg (25-34); Mean Corpuscular Hgb Conc 32.6 g/dL (32-36); Mean Corpuscular Volume 93.3 fL (80-100); Mean Platelet Volume 11.1 fL (7.4-10.4); Monocytes # (auto) 0.91 K/uL (0.11-0.59); Monocytes % (auto) 7.3 %; Neutrophils # (auto) 10.58 K/uL (1.4-6.5); Neutrophils % (auto) 85.3 %; Platelet Count 184 K/uL (130-400); RDW Coefficient of Variation 12.8 % (11.5-14.5); RDW Standard Deviation 43.9 fL (36.4-46.3); Red Blood Count 3.58 M/uL (4.2-5.4); White Blood Count 12.41 K/uL (4.8-10.8)
--- NOTE | 2019-06-22 07:17 | Orthopedic Progress Note ---
Date of Service June 22, 2019 Assessment & Plan (1) History of left hip replacement: Overall she is doing very well. She is not having too much pain in the left hip. She will be seen by physical therapy today for ambulation and range of motion exercises. She is on aspirin for DVT prophylaxis. She is orthopedically stable for discharge when medically ready. She will follow-up with orthopedics in 2 weeks. Full discharge instructions are located in the discharge summary. Present on Admission?: Yes Subjective Paula was seen and examined at bedside this morning. Overall she is doing very well. She is not having much pain in the left hip. She has already been up and ambulating to the bathroom. She has no complaints. Physical Exam Musculoskeletal: On physical examination of the left hip, the Latia VAC dressing is to suction. Her leg lengths are equal. She has active dorsiflexion and plantarflexion of her left ankle. Results & Data ([facility]) Vital Signs (Past 12 Hours) Vital Signs Temp Pulse Pulse Pulse Resp BP Pulse Ox 06/22/19 04:24 36.4 C L 62 18 122/57 L 93 06/22/19 00:00 80 06/21/19 23:45 36.3 C L 69 20 124/59 L 93 06/21/19 20:00 36.7 C 79 81 12 112/60 96 Diagnostic Findings Postoperative x-rays of the left hip show the prosthesis to be in anatomic alignment without any evidence of fracture, dislocation, or loosening. PG Care Time/CCT Total # of Minutes Spent Total Time Spent with Patient: Total time spent is greater than 50% in coordination of care (as documented) at patient's floor/unit and/or counseling patient: Coding Level of Care Code None Diagnoses History of left hip replacement Z96.642
--- NOTE | 2019-06-22 07:23 | Anesthesiology Progress Note ---
Date of Service June 22, 2019 Anesthesia Post Procedure Vital Signs Vital Signs: Temp Pulse Pulse Pulse Pulse Resp BP 06/22/19 07:17 65 06/22/19 04:24 36.4 C L 62 18 122/57 L 06/22/19 00:00 80 06/21/19 23:45 36.3 C L 69 20 124/59 L 06/21/19 20:00 36.7 C 79 81 12 112/60 06/21/19 18:21 36.6 C 78 16 121/71 06/21/19 17:18 36.2 C L 75 21 144/78 H 06/21/19 16:38 65 06/21/19 16:37 36.2 C L 68 12 132/65 06/21/19 15:45 36.6 C 63 16 141/68 H 06/21/19 15:35 36.6 C 83 15 138/82 06/21/19 15:25 36.6 C 63 12 123/67 06/21/19 15:15 36.6 C 65 16 148/66 H 06/21/19 15:05 62 15 140/71 06/21/19 14:55 64 16 122/56 L 06/21/19 14:48 36.2 C L 69 16 122/58 L 06/21/19 11:25 36.7 C 68 20 154/73 H 06/21/19 07:29 Pulse Ox Pulse Ox 06/22/19 07:17 06/22/19 04:24 93 06/22/19 00:00 06/21/19 23:45 93 06/21/19 20:00 96 06/21/19 18:21 98 06/21/19 17:18 96 06/21/19 16:38 06/21/19 16:37 98 06/21/19 15:45 97 06/21/19 15:35 100 06/21/19 15:25 98 06/21/19 15:15 98 06/21/19 15:05 96 06/21/19 14:55 100 06/21/19 14:48 100 06/21/19 11:25 98 06/21/19 07:29 92 Pain Intensity Left Hip: Pain Intensity: 0 Notes Mental Status: alert / awake / arousable and participated in evaluation Patient Amnestic to Procedure: Yes Nausea / Vomiting: adequately controlled Pain: adequately controlled Airway Patency, RR, SpO2: stable & adequate BP & HR: stable & adequate Hydration State: stable & adequate Neuraxial Anesthesia: was administered and sensory block resolved Anesthetic Complications: no major complications apparent and Pt Satisfied with anesthetic care
[2019-06-22 07:48] LABS: BUN Creatinine Ratio 28.5 (10-20); Creatinine Clr Calc Pharmacy 32.1 ml/min; Est GFR (African American) 68.9; Est GFR (Non-African American) 59.5; Potassium 3.8 mmol/L (3.5-5.1)
[2019-06-22] MEDS: MULTIVITAMIN TAB PO SCH (08:34)
[2019-06-22] MEDS: DOCUSATE SODIUM 100 MG CAP PO SCH ×2 (08:35→20:39)
[2019-06-22] MEDS ORDERED: ASPIRIN 81 MG ECTAB PO SCH (09:00)
--- NOTE | 2019-06-22 20:29 | Hospitalist Progress Note ---
Date of Service June 22, 2019 Assessment & Plan (1) Osteoarthritis of left hip: Seems that a lot of her struggles at home or failure to thrive from hip pain interrupting her ability to live a normal life. now post op - PT/OT eval and treat, anticipate rehab placement likely omorrow on 06/22 (2) Delirium: multifactorial related to being in the hospital as major factor. reassurance, redirecting strategies discussed with family. reorientation/etc for pt. no role for antipsychotics since she is not risking harm to herself or others. (3) Benign positional vertigo: No complaints of this today (4) Acute UTI: UTI versus asymptomatic bacteriuriaeither way was treated with ceftriaxone. No symptoms, no need for ongoing treatment (5) Dehydration: Probable cause of bad vertiginous episode which caused her admission. IV fluids given initially but eating/drinking much better now. follow clinically (6) Dizziness: Suspect episode on Thursday was either a more severe BPPV attack possibly related to UTI/dehydration. Follow postop (7) Fall: Hip surgery will have a clear goal of helping patient to walk better and have better balance. Physical and Occupational Therapy postop - anticipate rehab (8) HTN (hypertension): blood pressure showing reasonable control, continue to follow (9) Failure to thrive: Continue mirtazapine 15 mg p.o. change to HS to aid with sleep and appetite. 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 Unusual place for an isolated stroke therefore suspect this was from a prior head trauma. Unclear if ever caused any symptoms. Patient and daughter aware of this diagnosis per previous hospitalist. (11) Paroxysmal atrial tachycardia: No issues regarding this now (12) DVT prophylaxis: Was on Lovenoxnow held for surgery. Postop per orthopedics (13) Discharge planning issues: PT/OT eval and treat, plan for rehab Admission and Anticipated Discharge Date Admission Date: June 16, 2019 Subjective 88 yo female reports doing well. She has no new complaints. Review of Systems Review of Systems: All systems reviewed & are unremarkable except as noted in HPI & below Physical Exam Physical Exam: Constitutional: well developed and well nourished; no acute distress Eyes: + anicteric sclerae; normal pupil size Neck: trachea midline Respiratory: normal respiratory effort Musculoskeletal: no cyanosis or clubbing, extremities motor strength 5/5 Skin: no rashes, warm and dry Neurologic: moves all extremities and awake Psychiatric: A+Ox3, euthymic affect Results & Data ([facility]) Vital Signs (Past 12 Hours) Vital Signs Temp Pulse Pulse Resp BP Pulse Ox 06/22/19 19:35 36.2 C L 78 20 114/69 95 06/22/19 16:49 73 06/22/19 15:27 36.5 C 78 20 123/64 95 06/22/19 14:12 97 06/22/19 11:13 36.9 C 74 20 131/64 99 PG Care Time/CCT Total # of Minutes Spent Total Time Spent with Patient: Total time spent is greater than 50% in coordination of care (as documented) at patient's floor/unit and/or counseling patient: Coding Level of Care Code 23519 Subseq Hosp Care Lvl 2 Diagnoses Osteoarthritis of left hip M16.12 Osteoarthritis type: primary Delirium R41.0 Benign positional vertigo H81.13 Laterality: bilateral Acute UTI N39.0 Dehydration E86.0 Dizziness R42 Fall W19.XXXA Encounter type: initial encounter HTN (hypertension) I10 Hypertension type: essential hypertension Failure to thrive R62.7 Failure to thrive age range: in adult Encephalomalacia on imaging study G93.89 Paroxysmal atrial tachycardia I47.1 DVT prophylaxis Z29.9 Discharge planning issues Z02.9 Time Spent (min) 25 (1) Benign positional vertigo Laterality: bilateral Qualified Code(s): H81.13 - Benign paroxysmal vertigo, bilateral (2) Osteoarthritis of left hip Osteoarthritis type: primary Qualified Code(s): M16.12 - Unilateral primary osteoarthritis, left hip (3) Failure to thrive Failure to thrive age range: in adult Qualified Code(s): R62.7 - Adult failure to thrive (4) HTN (hypertension) Hypertension type: essential hypertension Qualified Code(s): I10 - Essential (primary) hypertension (5) Fall Encounter type: initial encounter Qualified Code(s): W19.XXXA - Unspecified fall, initial encounter
[2019-06-22] MEDS: APIXABAN 2.5 MG TAB PO SCH (20:37)
[2019-06-22] MEDS: MIRTAZAPINE TAB 15 MG TAB PO SCH (20:38)
[2019-06-22] MEDS: SENNA 8.6 MG TAB PO SCH (20:38)
[2019-06-22] MEDS: ATENOLOL 50 MG TABLET PO SCH (20:38)
[2019-06-23] MEDS: ACETAMINOPHEN 500 MG TAB PO SCH (06:21)
--- NOTE | 2019-06-23 06:51 | Orthopedic Progress Note ---
Date of Service June 23, 2019 Assessment & Plan (1) History of left hip replacement: Overall she is doing fairly well. She is motivated and participating well with physical therapy. She can be weightbearing as tolerated. She will be on aspirin twice a day for DVT prophylaxis for 6 weeks. She is orthopedically stable for discharge. She can follow-up with orthopedics in 2 weeks for staple removal. Full orthopedic discharge instructions are in the discharge summary. Present on Admission?: Yes Subjective Paula was seen and examined at bedside this morning. Overall she is doing very well. She is not having much pain in the left hip. She is motivated and participating well with physical therapy. She has no complaints. Physical Exam Musculoskeletal: On physical examination of the left hip, the [place] VAC dressing is to suction. Her leg lengths are equal. She is neurovascularly intact. Results & Data ([facility]) Vital Signs (Past 12 Hours) Vital Signs Temp Pulse Pulse Resp BP Pulse Ox 06/23/19 03:35 36.3 C L 64 16 121/72 95 06/23/19 00:27 80 06/22/19 23:50 36.4 C L 76 16 116/76 97 06/22/19 19:35 36.2 C L 78 20 114/69 95 PG Care Time/CCT Total # of Minutes Spent Total Time Spent with Patient: Total time spent is greater than 50% in coordination of care (as documented) at patient's floor/unit and/or counseling patient: Coding Level of Care Code None Diagnoses History of left hip replacement Z96.642
[2019-06-23 07:15] LABS: Creatinine Clr Calc Pharmacy 36.3 ml/min; Est GFR (African American) 79.9; Est GFR (Non-African American) 68.9
[2019-06-23] MEDS: APIXABAN 2.5 MG TAB PO SCH (08:48)
[2019-06-23] MEDS: DOCUSATE SODIUM 100 MG CAP PO SCH (08:49)
[2019-06-23] MEDS: MULTIVITAMIN TAB PO SCH (08:49)
--- NOTE | 2019-06-23 12:42 | Discharge Summary ---
Date of Service June 23, 2019 Admission HPI Per Admitting Provider The patient is an 88 years old female with past medical history of hypertension, left hip pain, vertigo, who was brought by EMS complaining of persistent dizziness started 2 days ago. The patient family reports that patient has been dizzy and has trouble getting out of bed because of her dizziness. Patient is poor historian and family is mostly reviewing systems and giving history for her. Dizziness is described as a spinning sensation. Even though patient reports the dizziness is somewhat improved she still has it. Resting and lying down improves dizziness. The family reports that patient fell 3 days ago. She hit her head and scraped her extremities. Since that fall patient is complaining of a headache for 1 day but that headache resolved. Thing improves patient body pain, and her family said that occasionally she takes Tylenol. Patient also has issues with anxiety. Patient supposed to have left hip replacement tomorrow with Dr. oHrn. Patient denies fever, chills, chest pain, shortness of breath, abdominal pain, frequency, urgency. Patient is not on blood thinning agents. Denies traveling recently abroad. Labs are reviewed: WBC 6.49, hemoglobin 13.1, hematocrit 39.8, platelets 222, PT 10.7, INR 1, sodium 141, potassium 3.9, chloride 108, carbon dioxide 28, anion gap 5, BUN 13, creatinine 0.0 71, GFR 76, BUN 17.8, glucose 96, calcium 9.8, magnesium 1.8, total bilirubin 0.9, AST 21, ALT 22, alkaline phosphatase 93, troponin 0.015, total protein 6.8, albumin 3.5, globulin 3.3, lipase 68, TSH 0.243 which is low but T4 is still normal 1.31. Urine is yellow, urine appearance cloudy, urine pH 5.5, urine specific gravity 1.018 urine protein 2+, urine blood 2+, urine nitrate negative, leukocyte esterase 2+, urine WBCs over 30, urine RBCs 10-30, urine bacteria 1+. X-rays of the cervical spine: No acute osseous injury of the cervical spine. Focal degenerative changes of C4-C5 and C5-C6. Multinodular gland goiter. Chest x-rays no acute cardiopulmonary finding. Mild cardiomegaly is noted without evidence of pulmonary edema. There is no consolidation of suggested pneumonia. Old right clavicular fracture is noted. CT scan of the head did not show acute intracranial findings. Patient set has mild ventricular dilatation likely due to central atrophy. Basilar cisterns are patent. Right frontal lobe encephalomalacia. X-rays of pelvis shows osteopenia and bowel gas no gross evidence of acute osseous injury of the pelvis. Severe deforming degenerative changes of the left hip. The decision was made to admit patient to [facility] on telemetry for further evaluation and treatment of generalized weakness, dizziness and treatment of urinary tract infection. Principal Diagnosis osteoarthritis of left hip Discharge Exam Constitutional: well developed and well nourished; no acute distress Eyes: + anicteric sclerae; normal pupil size Neck: trachea midline Respiratory: normal respiratory effort Musculoskeletal: no cyanosis or clubbing, extremities motor strength 5/5 Skin: no rashes, warm and dry Neurologic: moves all extremities and awake Psychiatric: A+Ox3, euthymic affect Discharge Data Allergies Allergy/AdvReac Type Severity Reaction Status Date / Time No Known Allergies Allergy Unverified 06/16/19 09:41 Consultations 06/16/19 14:19 ED Decision to Admit Stat 06/22/19 08:00 Consult Case Management - Discharge Planning Routine Procedures Performed Operation Date: 06/21/19 12:30 Actual Procedures p Left Anterior Total Hip Arthroplasty - Alfonzo Horn, Ordered Studies 06/16/19 09:18 CT cervical spine wo con Stat CT head/brain wo con Stat 06/21/19 11:48 US - OR guided needle placemen Routine 06/21/19 12:30 FL fluoroscopy <1hr Routine FL hip LT 1V Routine Hospital Course (1) Osteoarthritis of left hip: Seems that a lot of her struggles at home or failure to thrive from hip pain interrupting her ability to live a normal life. now post op - Patient being discharged today to rehab with dressing vac. D/W daughter regarding DVT prophylaxis options. DVT prophylaxis ordered as per orthopedic recommendations: Aspirin 81 mg PO BID (2) Delirium: multifactorial related to being in the hospital as major factor. reassurance, redirecting strategies discussed with family. reorientation/etc for pt. no role for antipsychotics since she is not risking harm to herself or others. (3) Benign positional vertigo: No complaints of this today (4) Acute UTI: UTI versus asymptomatic bacteriuriaeither way was treated with ceftriaxone. No symptoms, no need for ongoing treatment (5) Dehydration: Probable cause of bad vertiginous episode which caused her admission. IV fluids given initially but eating/drinking much better now. This has resolved. will follow clinically as outpatient. (6) Dizziness: resolved. Suspect episode on Thursday was either a more severe BPPV attack possibly related to UTI/dehydration. Follow postop (7) Fall: Hip surgery will have a clear goal of helping patient to walk better and have better balance. Physical and Occupational Therapy postop - anticipate rehab (8) HTN (hypertension): blood pressure showing reasonable control, continue to follow (9) Failure to thrive: Continue mirtazapine 15 mg p.o. change to HS to aid with sleep and appetite. 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 Unusual place for an isolated stroke therefore suspect this was from a prior head trauma. Unclear if ever caused any symptoms. Patient and daughter aware of this diagnosis per previous hospitalist. (11) Paroxysmal atrial tachycardia: No issues regarding this now (12) DVT prophylaxis: Was on Lovenoxprior to surgery. Postop per orthopedics as stated above. (13) Discharge planning issues: discharge to rehab Total Time Total Time Spent Total Time Spent (In Minutes): 35 Total Time Includes: Examination of the Patient, Discharge Planning, Medication Reconciliation and Communication With Other Providers Discharge Plan Discharge Items Patient Disposition: Transfer Inpatient Rehab Fac Reason For Visit: GENERALIZED WEAKNESS,UTI Discharge Diagnosis: Left hip replacement Condition on Discharge: Good Activity: Resume your previous activity Activity Comment: as recommended by physical therapy Non-emergency contact: Primary Care Provider Call non-emergency contact if: you have any medication questions Follow-up/Referrals: Rashad Devries, [Primary Care Provider] - Diet: Regular Addtl Attending Provider Instructions: Activity and Therapy Recommendations: * If you are using [facility] then therapy will be provided at your home until they feel you have accomplished all of your goals. * If you are using [facility] then Physical Therapy will be provided until they feel you are ready to start Outpatient Physical Therapy. * If you are not using home therapy then Outpatient Physical Therapy should start about 3-5 days from your day of surgery. Therapy will last about 6-10 weeks * You were shown a series of exercises in the hospital. Do these exercises three times each day including the exercises you were shown in physical therapy. * Get up and walk several times each day.~ For the first four weeks, try not to stand or walk for more than one hour at a time. If you do stand or walk for more than one hour, you will not hurt anything, but your leg will likely swell.~~ * As you feel comfortable, you may change from the walker or crutches to a cane and~then to independent walking. Medications: * Narcotic You will likely be sent home from the hospital with a prescription for the narcotic pain medication that worked best throughout your stay. Aspirin 81 mg PO BID FOR 6 WEEKS This is obtained [id number] and a prescription is not necessary. * Other medications may be prescribed for specific circumstances. If you have any questions, please call the office at . * Resume previous home medications unless otherwise instructed TEDs/Elastic Stockings: The white elastic stockings help limit swelling and prevent blood clots from forming in your legs. The more you wear them, the more they work. Wear them for six weeks. Dressing Care: You will likely have a purple VAC dressing after surgery. This dressing will keep the incision dry and promote early healing. After about 7 days the batteries will wear out and the VAC will lose suction. Simply remove the dressing at that time and throw everything away, including the small suction machine. Then, you may leave the josse open to air or cover them with a dry dressing so they do not rub on your pants. The josse will be removed at your 2 week follow-up appointment. Showering: You may shower immediately with the purple VAC dressing. Let the shower spray hit your opposite side and slowly pat the plastic dry. Do not soak the dressing. After the dressing is removed you may shower normally with the josse exposed. Let soapy water run over the josse and pat them dry. Things To Watch For: * Drainage from the incision site that occurs more than one week after your antoine rgery. * Increased redness at the incision site. * Fever above 102 degrees Fahrenheit. * Unusual chest pain or shortness of breath. * Call [facility] at with any of the above problems Follow-Up Visit: Follow-up with Dr. Horn 2-3 weeks after your day of surgery. An appointment was probably scheduled when you signed-up for surgery in the office. If you have any questions call Office Instructions: More detailed instructions as well as Frequently Asked Questions were provided in a folder by our office when you signed-up for surgery. Please review these instructions when you get home. If you have any further questions or concerns, please feel free to call the office at [phone] Pending Studies at Discharge: No Stand-Alone Forms: My [facility] Skilled Items Patient informed of condition?: Yes DNR: No Discharge Level of Care: Acute rehab Communicable Disease: No Discharge Prognosis: Stable Lines: None Urinary Catheter: No Medications and DC Order Prescriptions: New acetaminophen 500 mg Tablet 1,000 mg PO Q8 Qty: 0 RF: 0 docusate sodium 100 mg Capsule 100 mg PO BID PRN (Reason: constipation) Qty: 60 RF: 0 mirtazapine 15 mg Tablet 15 mg PO HS Qty: 30 RF: 0 aspirin 81 mg tablet,delayed release (DR/EC) 81 mg PO BID Qty: 60 RF: 0 Continued meclizine 25 mg tablet 25 mg PO DAILY PRN (Reason: Dizziness) RF: 0 turmeric 400 mg Capsule 400 mg PO DAILY RF: 0 atenolol 50 mg Tablet 50 mg PO HS RF: 0 Discontinued mirtazapine [Remeron] 15 mg tablet 15 mg PO DAILY Qty: 30 RF: 2 lorazepam [Ativan] 0.5 mg tablet 0.5 mg PO BID PRN (Reason: anxiety) Qty: 30 RF: 0 tramadol 50 mg tablet 50 mg PO BID PRN (Reason: Pain) RF: 0 hydrocodone-acetaminophen [[place]] 5-325 mg tablet 1 tab PO Q8H PRN (Reason: pain) Qty: 30 RF: 0 meloxicam 7.5 mg Tablet 7.5 mg PO DAILY RF: 0 Discharge Orders: Discharge Order (Routine); Ordered 06/23/19 Ordered By: Chente Rubalcava Admission Data Admit Date/Time: 06/16/19 15:11 Attending Provider: Chente Rubalcava Admit Provider: Devonte Beard Primary Care Provider: Rashad Devries Other Providers: [facility] ; Padilla Gaines ; Devonte Beard Other Interventions: Discharge Summary Assessment (RN) Last Done: 06/23/19 12:16 Coding Level of Care Code D/C Day Management >30 mins Diagnoses Osteoarthritis of left hip M16.12 Osteoarthritis type: primary Delirium R41.0 Benign positional vertigo H81.13 Laterality: bilateral Acute UTI N39.0 Dehydration E86.0 Dizziness R42 Fall W19.XXXA Encounter type: initial encounter HTN (hypertension) I10 Hypertension type: essential hypertension Failure to thrive R62.7 Failure to thrive age range: in adult Encephalomalacia on imaging study G93.89 Paroxysmal atrial tachycardia I47.1 DVT prophylaxis Z29.9 Discharge planning issues Z02.9 Time Spent (min) 35
[2019-06-23] MEDS ORDERED: BUPIVACAINE/EPINEPHRINE 0.25% 1:200,000 30 ML VIAL INFIL ONE (13:54)
[2019-06-23] MEDS ORDERED: PHENYLEPHRINE HCL 10 MG/ML VIAL IV ONE (13:54)
[2019-06-23] MEDS ORDERED: fentaNYL citrate 100 MCG/2 ML VIAL IV ONE (13:54)
[2019-06-23] MEDS ORDERED: BUPIVACAINE 0.5 % 5 MG/1 ML PF 10ML VIAL INFIL ONE (13:54)
[2019-06-23] MEDS ORDERED: CEFAZOLIN 250 MG/ML 1 GM VIAL IV ONE (13:54)
[2019-06-23] MEDS ORDERED: PROPOFOL IV EMULSION 10 MG/ML 20 ML VIAL IV ONE (13:54)
[2019-06-23] MEDS ORDERED: LIDOCAINE HCL 2% 2 ML VIAL/AMP(20MG/ML) INFIL ONE (13:54)
[2019-06-23] MEDS ORDERED: DEXAMETHASONE SOD INJ 4 MG/ML VIAL IV ONE (13:54)
== END 2019-06-23 13:55 | DRG 982 ==
LOC: ED 08:51 → 2N 15:11 → SUATTDRO 15:11 → 2N 15:48 → 3W 06-18 10:28 → 2N 06-21 14:44